=== PATIENT | female | born 1990 | race Caucasian/White ===

== ENCOUNTER 2017-08-30 08:40 | Inpatient (IN) | payer SELFPAY ==
[2017-08-30 09:17] VITALS: BMI 25.2
[2017-08-30] MEDS: Lactated Ringers 1,000 ML 50 ML IV (09:30)
[2017-08-30 09:43] LABS: Hemoglobin 12.3 g/dl (12.0-15.0); Mean Corp Hgb Conc 34.2 g/gl (32-36); Mean Corpuscular Hgb 31.8 pg (27.0-32.0); Mean Platelet Vol. 10.8 fl (6.2-12.0); Platelet Count 187 K/mm3 (150-450); RBC Distribution Width CV 12.8 % (11.6-14.6); RBC Distribution Width SD 42.4 fl (35.1-43.9); Red Blood Count 3.87 M/mm3 (4.2-5.4); White Blood Count 11.1 K/mm3 (4.4-11.0)
[2017-08-30 09:44] LABS: Scan Indicated on CBC? Y/N NO
[2017-08-30] MEDS: Oxytocin 30 units/NS 500 ml 30 UNITS/500 ML IV.SOLN 334 UNITS IV (12:45)
--- NOTE | 2017-08-30 12:53 | PCM.OB.VAG ---
Vaginal Delivery Maternal Presentation: Active Labor Amniotic Membrane Rupture Type: Artificial - Clear Amniotic Fluid Description: Clear Final MAURA: 08/26/17 Final MAURA Source: US <20 weeks Gestational age: 40 Weeks and 4 Days Date of Procedure: 08/30/17 Pre-Operative Diagnosis: Active Labor Post-Operative Diagnosis: of Viable Boy Surgery/ Procedure Performed: Spontaneous Vaginal Delivery Type of Anesthesia: None Description of Procedure: Patient progressed well to at 1238 over intact perineum. delivered OA and restituted to DARI without difficulty where anterior shoulder delivered followed by posterior shoulder and body. with spontaneous cry and respirations. placed on maternal abdomen where mouth and nose was bulb suctioned and infant was dried and stimulated. Apgers 9 and 9. Weight pending. Umbilical cord clamped and cut once it stopped pulsing. Placenta then delivered spontaneously via Dos Santos mechanism. Placenta intact with 3VC. Placental triage WNL. EBL = 200 cc. FF midline to massage 3FB below umbilicus. Pitocin IV given per protocol for active management of the 3rd stage and to achieve hemostasis. Upon inspection of vaginal vault no lacerations noted, no repair indicated. Sponge count correct. Vaginal sweep negative. Baby to breast, skin to skin and bonding initiated. Sally Cha CNTony Presentation: Vertex Placental Delivery Description: Spontaneous Placenta Disposition: [facility] Cord Vessel Description: 3 Vessels Nuchal Cord Compression: With compression Cord Entanglement: Around neck x 1, loose Estimated Blood Loss: 200 A gender: Male (1 minute): 9 (5 minute): 9 Episiotomy Description: None Laceration: None Medications given after delivery: IV Pitocin Complications: None
--- NOTE | 2017-08-30 13:10 | PCM.HP.OB ---
- Problem List (1) Hypothyroid Status: Chronic (2) Spontaneous onset of labor Status: Acute History Date of Admission: 08/30/17 Final MAURA: 08/26/17 Final MAURA Source: US <20 weeks Gestational age: 40 Weeks and 4 Days History of this : Patient presented to triage with contractions, found to be 3-4cm and progressed uneventfully to 9cm by time this provider arrived on unit. This provider stood in for Dr. Silvestre as she in OR with other patient. Pertinent Past Medical History: Hypothyroidism - takes Levothyroxine 50mg PO daily Allergies Sulfa (Sulfonamide Antibiotics) Allergy (Verified 03/09/15 22:51) Unknown Pt states she had a reaction as a child and unsure of reaction Current Medications Acetaminophen (Tylenol) 325 - 650 mg PO Q4H PRN PRN PRN Reason: PAIN OR FEVER >100.4F Acetaminophen (Tylenol) 1,000 mg PO Q8H PRN PRN PRN Reason: MILD PAIN (1-3/10)/Temp>99.6F Al Hydroxide/Mg Hydroxide (Mylanta Ii) 15 - 30 ml PO Q4H PRN PRN PRN Reason: INDIGESTION Bisacodyl (Dulcolax) 10 mg RECTAL UD PRN PRN Reason: If no BM Citric Acid/Sodium Citrate (Bicitra) 30 ml PO UD PRN Dibucaine (Dibucaine) 1 applic TOPICAL TID PRN PRN; Protocol PRN Reason: Discomfort Hydrocortisone (Hytone) 1 applic TOPICAL TID PRN PRN; Protocol PRN Reason: Discomfort Lactated Ringer's () 1,000 mls @ 50 mls/hr IV .Q20H [facility] Last Admin: 08/30/17 09:30 Dose: 50 mls/hr Penicillin G Potassium/Dextrose (Penicillin G Potassium) 3 mu in 50 mls @ 100 mls/hr IV Q4H [facility] Oxytocin/Sodium Chloride () 30 units in 500 mls @ 1 mls/hr IV .Q500H [facility] Lactated Ringer's () 1,000 mls @ 0 mls/hr IV .Q0M [facility]COE PRN Reason: KVO Oxytocin/Sodium Chloride () 30 units in 500 mls @ 334 mls/hr IV .Q1H30M [facility] Stop: 08/30/17 13:35 Oxytocin/Sodium Chloride () 30 units in 500 mls @ 167 mls/hr IV .Q3H [facility] Stop: 08/30/17 14:05 Ibuprofen (Motrin) 600 mg PO Q6H PRN PRN PRN Reason: MILD PAIN (1-10) Levothyroxine Sodium (Synthroid) 50 mcg PO DAILY@0600 [facility] Methylergonovine Maleate (Methergine) 0.2 mg IM X1 PRN PRN Reason: Excess bleeding/uterine atony Nalbuphine HCl (Nubain) 5 - 10 mg IV Q3H PRN PRN PRN Reason: PAIN (4-10) Ondansetron HCl (Zofran) 4 mg IV Q8H PRN PRN PRN Reason: NAUSEA Ondansetron HCl (Zofran) 4 mg IV Q4H PRN PRN PRN Reason: Nausea Multivit/Folic Acid/Iron (Prenatabs Fa) 1 tablet PO DAILY@1200 [facility] Promethazine HCl (Phenergan (Ll)) 6.25 - 12.5 mg IV Q4H PRN PRN; Protocol PRN Reason: IF NAUSEA PERSISTS Senna/Docusate Sodium (Senokot-S, Christine-Colace) 1 - 2 tablet PO DAILY PRN PRN PRN Reason: Constipation Simethicone (Mylicon) 80 mg PO PCHS PRN PRN Reason: Indigestion/Stomach pain Sodium Chloride () 5 - 15 ml IV UD [facility] Last Admin: 08/30/17 09:51 Dose: Not Given Sodium Chloride () 5 - 15 ml IV UD PRN PRN Reason: SALINE FLUSH Smoking Status: Never smoker Alcohol: None Drug Use: none Number of Fetus(es): 1 Review of Systems Constitutional: Denies: Chills, Fever, Weight Change HEENT: Denies: Head Aches, Sinus Congestion, Sinus Drainage Cardiovascular: Denies: Chest Pain, Palpitations Respiratory: Denies: Cough, Shortness of breath at rest, Sputum production Gastrointestinal: Denies: Abdominal Pain, Nausea, Vomiting Genitourinary: Denies: Dysuria Musculoskeletal: Denies: Joint Pain, Joint Tenderness Skin: Denies: Rash, Wounds Neurological: Denies: Numbness, Tingling, Focal weakness Psychiatric: Denies: Anxiety, Depression, Homicidal Ideations, Suicidal Ideations Hematologic/ Lymphatic: Denies: Easy Bruising, Easy Bleeding Physical Exam Vitals: See Nursing Note for Vital Signs - reassuring FHTs noted General: Alert, Oriented x3, No apparent distress Cardiovascular: Regular rate, Regular Rhythm Lungs: Clear to auscultation Abdomen: Bowel Sounds Present, Gravid Extremities:: No edema Estimated gestational size: Appropriate for gestational size Presentation: Cephalic Cervix Dilation (cm): 9 Station: 0 Effacement (%): 100 Assessment/Plan Active and Suspected Problems Spontaneous onset of labor (Acute) A: 27 y/o , now 3. Spontaneous Labor at term - vaginal delivery P: 1) Vaginal delivery without complication - see delivery note 2) PP orders as scheduled Sally Cha CNM
[2017-08-30] MEDS: Oxytocin 30 units/NS 500 ml 30 UNITS/500 ML IV.SOLN 167 UNITS IV (13:15)
--- NOTE | 2017-08-30 13:15 | HP.PCM_ITS ---
- Problem List (1) Hypothyroid Status: Chronic (2) Spontaneous onset of labor Status: Acute History Date of Admission: 08/30/17 Final MAURA: 08/26/17 Final MAURA Source: US <20 weeks Gestational age: 40 Weeks and 4 Days History of this : Patient presented to triage with contractions, found to be 3-4cm and progressed uneventfully to 9cm by time this provider arrived on unit. This provider stood in for Dr. Silvestre as she in OR with other patient. Pertinent Past Medical History: Hypothyroidism - takes Levothyroxine 50mg PO daily Allergies Sulfa (Sulfonamide Antibiotics) Allergy (Verified 03/09/15 22:51) Unknown Pt states she had a reaction as a child and unsure of reaction Current Medications Acetaminophen (Tylenol) 325 - 650 mg PO Q4H PRN PRN PRN Reason: PAIN OR FEVER >100.4F Acetaminophen (Tylenol) 1,000 mg PO Q8H PRN PRN PRN Reason: MILD PAIN (1-3/10)/Temp>99.6F Al Hydroxide/Mg Hydroxide (Mylanta Ii) 15 - 30 ml PO Q4H PRN PRN PRN Reason: INDIGESTION Bisacodyl (Dulcolax) 10 mg RECTAL UD PRN PRN Reason: If no BM Citric Acid/Sodium Citrate (Bicitra) 30 ml PO UD PRN Dibucaine (Dibucaine) 1 applic TOPICAL TID PRN PRN; Protocol PRN Reason: Discomfort Hydrocortisone (Hytone) 1 applic TOPICAL TID PRN PRN; Protocol PRN Reason: Discomfort Lactated Ringer's () 1,000 mls @ 50 mls/hr IV .Q20H [facility] Last Admin: 08/30/17 09:30 Dose: 50 mls/hr Penicillin G Potassium/Dextrose (Penicillin G Potassium) 3 mu in 50 mls @ 100 mls/hr IV Q4H [facility] Oxytocin/Sodium Chloride () 30 units in 500 mls @ 1 mls/hr IV .Q500H [facility] Lactated Ringer's () 1,000 mls @ 0 mls/hr IV .Q0M [facility] PRN Reason: KVO Oxytocin/Sodium Chloride () 30 units in 500 mls @ 334 mls/hr IV .Q1H30M [facility] Stop: 08/30/17 13:35 Oxytocin/Sodium Chloride () 30 units in 500 mls @ 167 mls/hr IV .Q3H [facility] Stop: 08/30/17 14:05 Ibuprofen (Motrin) 600 mg PO Q6H PRN PRN PRN Reason: MILD PAIN (1-10) Levothyroxine Sodium (Synthroid) 50 mcg PO DAILY@0600 [facility] Methylergonovine Maleate (Methergine) 0.2 mg IM X1 PRN PRN Reason: Excess bleeding/uterine atony Nalbuphine HCl (Nubain) 5 - 10 mg IV Q3H PRN PRN PRN Reason: PAIN (4-10) Ondansetron HCl (Zofran) 4 mg IV Q8H PRN PRN PRN Reason: NAUSEA Ondansetron HCl (Zofran) 4 mg IV Q4H PRN PRN PRN Reason: Nausea Multivit/Folic Acid/Iron (Prenatabs Fa) 1 tablet PO DAILY@1200 [facility] Promethazine HCl (Phenergan (Ll)) 6.25 - 12.5 mg IV Q4H PRN PRN; Protocol PRN Reason: IF NAUSEA PERSISTS Senna/Docusate Sodium (Senokot-S, Christine-Colace) 1 - 2 tablet PO DAILY PRN PRN PRN Reason: Constipation Simethicone (Mylicon) 80 mg PO PCHS PRN PRN Reason: Indigestion/Stomach pain Sodium Chloride () 5 - 15 ml IV UD [facility] Last Admin: 08/30/17 09:51 Dose: Not Given Sodium Chloride () 5 - 15 ml IV UD PRN PRN Reason: SALINE FLUSH Smoking Status: Never smoker Alcohol: None Drug Use: none Number of Fetus(es): 1 Review of Systems Constitutional: Denies: Chills, Fever, Weight Change HEENT: Denies: Head Aches, Sinus Congestion, Sinus Drainage Cardiovascular: Denies: Chest Pain, Palpitations Respiratory: Denies: Cough, Shortness of breath at rest, Sputum production Gastrointestinal: Denies: Abdominal Pain, Nausea, Vomiting Genitourinary: Denies: Dysuria Musculoskeletal: Denies: Joint Pain, Joint Tenderness Skin: Denies: Rash, Wounds Neurological: Denies: Numbness, Tingling, Focal weakness Psychiatric: Denies: Anxiety, Depression, Homicidal Ideations, Suicidal Ideations Hematologic/ Lymphatic: Denies: Easy Bruising, Easy Bleeding Physical Exam Vitals: See Nursing Note for Vital Signs - reassuring FHTs noted General: Alert, Oriented x3, No apparent distress Cardiovascular: Regular rate, Regular Rhythm Lungs: Clear to auscultation Abdomen: Bowel Sounds Present, Gravid Extremities:: No edema Estimated gestational size: Appropriate for gestational size Presentation: Cephalic Cervix Dilation (cm): 9 Station: 0 Effacement (%): 100 Assessment/Plan Active and Suspected Problems Spontaneous onset of labor (Acute) A: 27 y/o , now 3. Spontaneous Labor at term - vaginal delivery P: 1) Vaginal delivery without complication - see delivery note 2) PP orders as scheduled Sally Cha CNM
[2017-08-30] MEDS: 0.9% Saline Lock 10 ML Syringe IV (14:21)
[2017-08-30 16:22] VITALS: BP 104/61; PULSE 91; RESP 16; TEMP 37.1
[2017-08-30] MEDS: Naproxen 250 MG Tablet PO ×2 (16:38→23:42)
[2017-08-30 19:40] VITALS: BP 140/81; PULSE 74; RESP 18; TEMP 36.9; O2SAT 99
[2017-08-30] MEDS: Acetaminophen 500 MG Tablet 1000 MG PO (19:41)
[2017-08-30 23:31] VITALS: BP 113/55; PULSE 80; RESP 16; TEMP 37.1
[2017-08-31 05:00] VITALS: BP 107/70; PULSE 78; RESP 16; TEMP 36.7
[2017-08-31] MEDS: Levothyroxine 50 MCG Tablet PO (05:43)
[2017-08-31] MEDS: Acetaminophen 500 MG Tablet 1000 MG PO (05:43)
[2017-08-31 07:45] VITALS: BP 107/59; PULSE 90; RESP 16; TEMP 37.2; O2SAT 97
[2017-08-31] MEDS: Senna/Docusate Sodium 1 Tablet PO (07:46)
--- NOTE | 2017-08-31 08:57 | PCM.PROGNOTE ---
Patient Problems: Active and Suspected Problems Spontaneous onset of labor (Acute) Subjective: Doing well per patient and nursing staff. Taking PO and ambulating without difficulty. Voiding without complaints. Pain controlled with Motrin. without difficulty. Denies any increased vaginal bleeding, clots or pain. Planning D/C home tomorrow. - Physical Exam General: Alert, Oriented x3, Cooperative Lungs: Clear to auscultation, Normal air movement, No rhonchi, No wheeze Cardiovascular: Regular rate, Regular Rhythm, No murmurs Abdomen: Bowel Sounds Present, Soft, Non Tender, - - Fundus firm 2 below U Extremities: No edema, - - Bridget's negative Psych/Mental Status: Normal Affect, Appropriate Vital Signs Temp Pulse Resp BP Pulse Ox 98.9 F 90 16 107/59 L 97 08/31/17 07:45 08/31/17 07:45 08/31/17 07:45 08/31/17 07:45 08/31/17 07:45 Oxygen Delivery Method Room Air Weight: 151 lb 10.848 oz Body Mass Index (BMI) 25.2 Intake and Output for Last 24 Hours 08/29/17 08/30/17 08/31/17 23:59 23:59 23:59 Intake Total 450 / 450 Output Total 1800 / 1800 Balance -1350 / -1350 Laboratory Tests Past 24 Hrs 08/30/17 08/30/17 09:20 09:20 WBC 11.1 H RBC 3.87 L Hgb 12.3 Hct 36.0 L MCV 93.0 MCH 31.8 MCHC 34.2 RDW 12.8 RDW Differential 42.4 Plt Count 187 MPV 10.8 Blood Type O POSITIVE Antibody Screen NEGATIVE Assessment/Plan Active and Suspected Problems Spontaneous onset of labor (Acute) A: PPD#1 GBS positive P: 1) Routine care 2) Planning D/C home tomorrow due to GBS positive status
[2017-08-31 12:41] VITALS: BP 117/68; PULSE 72; RESP 18; TEMP 36.6; O2SAT 100
[2017-08-31] MEDS: Naproxen 250 MG Tablet PO ×2 (12:51→21:12)
[2017-08-31 16:10] VITALS: BP 116/56; PULSE 73; RESP 16; TEMP 37.3; O2SAT 96
[2017-08-31 19:57] VITALS: BP 132/74; PULSE 80; RESP 16; TEMP 36.8
[2017-09-01 02:58] VITALS: BP 112/55; PULSE 82; RESP 16; TEMP 37.1
[2017-09-01] MEDS: Levothyroxine 50 MCG Tablet PO (05:09)
[2017-09-01 08:40] VITALS: BP 107/67; PULSE 82; RESP 16; TEMP 37.1
--- NOTE | 2017-09-01 10:23 | PCM.PN.OB ---
Patient Problems: Active and Suspected Problems Spontaneous onset of labor (Acute) Subjective: 27 y/o female s/p . Patient doing well. Denies Chest pain, SOB. Denies n/v/f/c. - Physical Exam General: Alert, Oriented x3 HEENT: Atraumatic Oral: Moist Mucosa Lungs: Clear to auscultation, Normal air movement Cardiovascular: Regular rate, Regular Rhythm Abdomen: Bowel Sounds Present, Soft, Distended - mildly and appropriate Extremities: No Calf Tenderness Psych/Mental Status: Normal Affect, Appropriate, Alert and oriented to time, place, person, mood and affect Vital Signs Temp Pulse Resp BP Pulse Ox 98.8 F 82 16 107/67 96 09/01/17 08:40 09/01/17 08:40 09/01/17 08:40 09/01/17 08:40 08/31/17 16:10 Oxygen Delivery Method Room Air Weight: 68.8 kg Body Mass Index (BMI) 25.2 Intake and Output for Last 24 Hours 08/30/17 08/31/17 09/01/17 23:59 23:59 23:59 Intake Total 450 / 450 Output Total 1800 / 1800 Balance -1350 / -1350 Medical Necessity - Tobacco Use Smoking Status: Never smoker Tobacco Use: Non-smoker Assessment/Plan Active and Suspected Problems Spontaneous onset of labor (Acute) A: 27 y/o female s/p . P: Patient seen and examined Discharge patient home today Instructed to take NSAIDs prn for pain To call if fevers >100.5 or increase in pain out of proportion. RTC: 6 weeks .
--- NOTE | 2017-09-01 10:45 | PN.OBGYN_ITS ---
Patient Problems: Active and Suspected Problems Spontaneous onset of labor (Acute) Subjective: 27 y/o female s/p . Patient doing well. Denies Chest pain, SOB. Denies n /v/f/c. - Physical Exam General: Alert, Oriented x3 HEENT: Atraumatic Oral: Moist Mucosa Lungs: Clear to auscultation, Normal air movement Cardiovascular: Regular rate, Regular Rhythm Abdomen: Bowel Sounds Present, Soft, Distended - mildly and appropriate Extremities: No Calf Tenderness Psych/Mental Status: Normal Affect, Appropriate, Alert and oriented to time, place, person, mood and affect Vital Signs Temp Pulse Resp BP Pulse Ox 98.8 F 82 16 107/67 96 09/01/17 08:40 09/01/17 08:40 09/01/17 08:40 09/01/17 08:40 08/31/17 16:10 Oxygen Delivery Method Room Air Weight: 68.8 kg Body Mass Index (BMI) 25.2 Intake and Output for Last 24 Hours 08/30/17 08/31/17 09/01/17 23:59 23:59 23:59 Intake Total 450 / 450 Output Total 1800 / 1800 Balance -1350 / -1350 Medical Necessity - Tobacco Use Smoking Status: Never smoker Tobacco Use: Non-smoker Assessment/Plan Active and Suspected Problems Spontaneous onset of labor (Acute) A: 27 y/o female s/p . P: Patient seen and examined Discharge patient home today Instructed to take NSAIDs prn for pain To call if fevers >100.5 or increase in pain out of proportion. RTC: 6 weeks .
--- NOTE | 2017-09-01 10:47 | DCINST_ITS ---
Discharge Diet: No Restrictions Discharge Activity: Return to Normal Activity, May not drive while taking narcotic pain medications., May Shower May resume sexual activity in: 4-6 weeks Additional Activity Instructions:: Nothing in the vagina for 4-6 weeks. You may return to work/school in 6 weeks. Call your doctor if your incision/area has: Continuous Slow Oozing, Sudden Increased Bleeding, Increased Pain/ Swelling, Increased Redness, Foul Smelling Discharge Additional Instructions: If you experience any of the following, contact your healthcare provider. * Bleeding that soaks a pad every hour for 2 hours * Fever 100.4 or higher * Unrelieved incision or abdominal pain * Swelling, redness, discharge or bleeding from your incision or episiotomy site * Your incision begins to separate * Problems urinating (including inability to urinate or burning while urinating) . * Visual changes * Severe headache * Flu-like symptoms * Pain or redness in one of both of your breasts * Pain, warmth, tenderness or swelling in your legs, especially the calf area * Frequent nausea and vomiting * Symptoms of depression or anxiety If you experience any of the following, call 911 or go to the nearest Emergency Room. * Chest pain * Problems breathing * Seizure activity * Partial or complete paralysis of a body part, slurred speech, weakness or drooping of the face, or a sudden inability to walk or hold your balance Allergies/Adverse Reactions: Allergies Sulfa (Sulfonamide Antibiotics) Allergy (Verified 03/09/15 22:51) Unknown Pt states she had a reaction as a child and unsure of reaction Medications to take at Discharge Levothyroxine [Synthroid] 50 mcg PO DAILY 03/09/15 Vits [Prenatabs FA ] 1 tablet PO DAILY 03/09/15 Please Follow Up With: Sasha Silvestre MD - [phone] When: Call to make an appointment with your doctor in 6 weeks. If you had elevated Blood Pressure or 4th degree laceration you will need to be seen in 2 weeks. Primary Care Physician: Reynaldo Dumont [Primary Care Provider] -
== END 2017-09-01 11:10 | disposition home or self-care (01) | DRG 774 ==
PROVIDERS: Admitting Provider Obstetrics & Gynecology; Family Provider Family Medicine; PCP Family Medicine; Visit Provider Obstetrics & Gynecology
DX: O69.1XX0 Labor and delivery complicated by cord around neck, with compression, not applicable or unspecified (principal); O98.82 Other maternal infectious and parasitic diseases complicating childbirth; O48.0 Post-term pregnancy; Z3A.40 40 weeks gestation of pregnancy; B95.1 Streptococcus, group B, as the cause of diseases classified elsewhere; Z37.0 Single live birth; O99.284 Endocrine, nutritional and metabolic diseases complicating childbirth; E03.9 Hypothyroidism, unspecified; Z79.899 Other long term (current) drug therapy
CPT/HCPCS: 59025; 59050; 85027; 86850; 86900; 99218; J7120; A4216; G0378

== ENCOUNTER → 2019-08-19 | Outpatient (CLI) | payer SELFPAY ==
--- NOTE | 2019-08-19 15:19 | CT_ITS ---
STUDY: CTA CHEST REASON FOR EXAM: Female, 29 years old. Chest discomfort, recent travel. ? Pulmonary emboli. RADIATION DOSAGE (If Supplied By Facility): CTDIvol = ( 3.61 ) mGy, DLP = ( 151.62 ) mGycm TECHNIQUE: The examination was performed with the intravenous administration of 75mL Isovue 370. Post-processing of the angiographic images was performed, with multiplanar reformation and 3D reconstruction. Individualized dose optimization techniques were used for this CT. COMPARISON: None. FINDINGS: Normal enhancement of the main pulmonary artery and right and left pulmonary arteries. Normal enhancement of the bilateral peripheral pulmonary arteries. There is no demonstrated pulmonary embolism. Normal thoracic aorta and visualized great vessels. There is no demonstrated aortic dissection. Normal heart and pericardium. Normal mediastinum. Normal hilar regions. Normal visualized trachea and bronchi. The lungs are well expanded. Normal pulmonary parenchyma. Normal pleura. Normal chest wall structures. Normal osseous structures. Normal visualized upper abdomen. CT/CTA Chest W/WO Contrast IMPRESSION: Normal CTA chest examination, without a demonstrated pulmonary embolism or arterial dissection. Electronically Signed: Bereket Melgar, at 15:48 EST , Service support ,
[2019-08-19 15:27] LABS: D-Dimer Quantitative (DVT/PE) 0.29 FEU/ug/m (0.27-0.49)
[2019-08-19 15:54] LABS: T4 Total, Thyroxin 9.8 ug/dL (4.8-13.9); Thyroid Stim Hormone (TSH) 1.78 uIU/mL (0.358-3.74)
== END | disposition home or self-care (01) ==
LOC: CT 14:56
PROVIDERS: PCP Family Medicine; Referring Provider Family Medicine; Visit Provider Family Medicine
DX: E03.9 Hypothyroidism, unspecified (principal); R07.89 Other chest pain
CPT/HCPCS: 36415; 71275; 84436; 84443; 85379; Q9967

== ENCOUNTER → 2019-12-10 | Outpatient (CLI) | payer SELFPAY ==
--- NOTE | 2019-12-10 11:24 | RAD_ITS ---
STUDY: X-RAY - LEFT ANKLE REASON FOR EXAM: Female, 29 years old. Left ankle pain/some swelling, injured on a trampoline last night TECHNIQUE: 3 view(s) of the ankle. COMPARISON: None. FINDINGS: Normal visualized distal tibia and fibula. Normal medial and lateral malleoli. Normal tibiotalar articulation and ankle mortise. Normal visualized talus and calcaneus. The visualized subtalar, talonavicular, calcaneocuboid and tarsal articulations are normal. The soft tissue structures are unremarkable. RAD/Ankle min 3 Views IMPRESSION: Normal x-ray examination of the ankle. Electronically Signed: Quincy Louise MD at 12:00 EDT , Service support ,
== END | disposition home or self-care (01) ==
PROVIDERS: PCP Family Medicine; Referring Provider Family Medicine; Visit Provider Family Medicine
DX: S93.402A Sprain of unspecified ligament of left ankle, initial encounter (principal)
CPT/HCPCS: 73610

== ENCOUNTER 2022-02-05 06:05 | Inpatient (IN) | payer SELFPAY ==
[2022-02-05] VITALS (48 sets, daily range): BP systolic 96–140; BP diastolic 51–95; PULSE 63–134; RESP 16–18; TEMP 36.2–37.1; O2SAT 89–100; BMI 28.4
--- NOTE | 2022-02-05 | PLAC_PTH ---
PATIENT: RL VERA LOC: WP U#:[id number] AGE/SX: 31/F ROOM: [facility] RE02/05/[address]: Sana Moulton CNM : 1990 BED: 1 DIS: 02/06/2022 SPEC #: [id number] RECD: 02/05/22 15:56 STATUS: POPEYE REVladimir #: [id number] MORENO: 02/05/22 00:[address]: Sana Moulton DEPT: SURGICAL PATHOLOGY RECD BY: Marcio Javier ENTERED: 02/06/22 12:27 SP TYPE: PLACENTA OTHR DR: Dr. Reynaldo Dumont MD Tissues: Placenta, NOS Procedures: Surgery Specimen Level V HEADER OPERATION: Vaginal delivery PRE-OP DIAGNOSIS: Marginal insertion TISSUE SUBMITTED: Placenta MICROSCOPIC DIAGNOSIS Becker placenta (481 gm): Umbilical cord ? trivascular with no evidence of inflammation. Placental membranes ? Mild acute amnionitis. Placental disc ? Shawanda-Ortega change, intravillous congestion and mild decidual chronic inflammation. AM:kermit 02/08/2022 AM:kermit 02/09/2022 MICROSCOPIC DESCRIPTION Slides are reviewed. GROSS DESCRIPTION SPECIMEN: PLACENTA / CLINICAL INFORMATION: A. Weight: 3.53 kg B. Gestational Age: 39 weeks C. Sex: Male PLACENTAL WEIGHT (POST FIXATION): 481 gm PLACENTAL DIMENSIONS: 16.5 x 14.5 x 3 cm PLACENTAL SHAPE: Usual ovoid PLACENTAL WEIGHT FOR GESTATIONAL AGE: Within 10-99th percentile MEMBRANES - Present A. Insertion: Marginal B. Site of rupture from edge: At edge of placental disc C. Color of membrane: Cruz-west D. Abnormalities: None UMBILICAL CORD - Present A. Color: Cruz-west B. Insertion: Marginal C. Length: 44 cm D. Diameter: 1 cm E. Number of vessels: Three F. Abnormalities: None PLACENTAL DISC - Present A. Color of surface: Cruz-west B. surface abnormalities: None C. Maternal cotyledons: Intact with minimal tears D. Attached retro placental clot: No clot E. Cut surface: Dark red and spongy F. Lesions: None G. Separate clot: Absent SECTIONS SUBMITTED: 1. Umbilical cord ( end notched) 2. Umbilical cord, placental end 3. Membrane roll 4. Placental disc, and maternal surfaces 5. Placental disc, and maternal surfaces 6. Placental disc, and maternal surfaces 7. Additional membranes AM:kermit 02/07/2022 TC:3 CPT: 55334
--- NOTE | 2022-02-05 | PLAC_PTH ---
PATIENT: RL VERA LOC: [facility] U#:[id number] AGE/SX: 31/F ROOM: [facility] RE02/05/[address]: Sana Moulton CNM : 1990 BED: 1 DIS: 02/06/2022 SPEC #: [id number] RECD: 02/05/22 15:56 STATUS: POPEYE REVladimir #: [id number] MORENO: 02/05/22 00:[address]: Sana Moulton DEPT: SURGICAL PATHOLOGY RECD BY: Marcio Javier ENTERED: 02/06/22 12:27 SP TYPE: PLACENTA OTHR DR: Dr. Reynaldo Dumont MD Tissues: Placenta, NOS Procedures: Surgery Specimen Level V HEADER OPERATION: Vaginal delivery PRE-OP DIAGNOSIS: Marginal insertion TISSUE SUBMITTED: Placenta MICROSCOPIC DIAGNOSIS Becker placenta (481 gm): Umbilical cord ? trivascular with no evidence of inflammation. Placental membranes - No pathologic change. Placental disc ? Shawanda-Ortega change, intravillous congestion and mild decidual chronic inflammation. AM:kermit 02/08/2022 MICROSCOPIC DESCRIPTION Slides are reviewed. GROSS DESCRIPTION SPECIMEN: PLACENTA / CLINICAL INFORMATION: A. Weight: 3.53 kg B. Gestational Age: 39 weeks C. Sex: Male PLACENTAL WEIGHT (POST FIXATION): 481 gm PLACENTAL DIMENSIONS: 16.5 x 14.5 x 3 cm PLACENTAL SHAPE: Usual ovoid PLACENTAL WEIGHT FOR GESTATIONAL AGE: Within 10-99th percentile MEMBRANES - Present A. Insertion: Marginal B. Site of rupture from edge: At edge of placental disc C. Color of membrane: Cruz-west D. Abnormalities: None UMBILICAL CORD - Present A. Color: Cruz-west B. Insertion: Marginal C. Length: 44 cm D. Diameter: 1 cm E. Number of vessels: Three F. Abnormalities: None PLACENTAL DISC - Present A. Color of surface: Cruz-west B. surface abnormalities: None C. Maternal cotyledons: Intact with minimal tears D. Attached retro placental clot: No clot E. Cut surface: Dark red and spongy F. Lesions: None G. Separate clot: Absent SECTIONS SUBMITTED: 1. Umbilical cord ( end notched) 2. Umbilical cord, placental end 3. Membrane roll 4. Placental disc, and maternal surfaces 5. Placental disc, and maternal surfaces 6. Placental disc, and maternal surfaces 7. Additional membranes AM:kermit 02/07/2022 TC:3 CPT: 80745
[2022-02-05] MEDS: Lactated Ringers 1,000 ML 200 ML IV (06:27)
[2022-02-05 06:43] LABS: Absolute Lymphocyte Count 1.52 X10^3/uL (0.83-4.51); Basophil# 0.03 X10^3/uL; Basophil% 0.2 % (0-1); Eosinophil# 0.06 X10^3/uL; Eosinophils% 0.5 % (0-5); Hematocrit 38.2 % (37-47); Hemoglobin 13.4 g/dL (12.0-15.0); Lymphocyte # 1.52 X10^3/ul (0.83-4.51); Lymphocyte % 12.3 % (19-41); Mean Corp Hgb Conc 35.1 g/dL (32-36); Mean Corpuscular Hgb 32.8 pg (27.0-32.0); Mean Corpuscular Volume 93.4 fL (81-99); Mean Platelet Vol. 10.5 fl (6.2-12.0); Monocyte# 0.71 X10^3/uL; Monocyte% 5.7 % (0-10); NRBC Flagged by Analyzer 0 % (0-5); Neutrophil # 9.99 X10^3/uL (2.7-7.7); Neutrophil % 80.7 % (47-70); Platelet Count 187 K/mm3 (150-450); RBC Distribution Width CV 12.4 % (11.6-14.6); RBC Distribution Width SD 42.6 fl (35.1-43.9); Red Blood Count 4.09 M/mm3 (4.2-5.4); White Blood Count 12.4 K/mm3 (4.4-11.0)
[2022-02-05] MEDS: LACTATED RINGERS 500 ML 999 ML IV (06:46)
[2022-02-05] MEDS: fentaNYL-bupivacaine (epidural) 100 ML BAG EPIDURAL (08:09)
--- NOTE | 2022-02-05 09:48 | HP.PCM.OB_ITS ---
HPI - General General Date of Admission: 02/05/22 HPI Narrative RL VERA, is a 31 F who presents at 39w4d in active labor. complicated by history of hypothyroidism, unmedicated during the . Maternal Data Information MAURA Calculator Estimated Delivery Date Method Current WG Current Estimate 02/08/22 Manual 39w 4d Final MAURA: 02/08/22 PFSH PFSH Home Medications vits,calcium no.78-iron fumarate-folic acid 29 mg-1 mg tablet (Prenatabs FA) 1 tab PO DAILY 03/09/15 [History Last Taken 02/04/22] Allergy/AdvReac Type Severity Reaction Status Date / Time Sulfa (Sulfonamide Allergy Unknown Verified 02/05/22 01:28 Antibiotics) Surgical History (Updated 02/05/22 @ 09:02 by Beulah Grissom) History of hand surgery Social History Smoking Status: Never smoker History Elective abortions Hx Para 3 Spontaneous abortions Hx # Term Pregnancies Ectopic pregnancies Hx # Pregnancies Multiple births # of living children Visit Details OB Flowsheet Initial Weight: Not Recorded Date -?-?-?-?-?-?-?-?-?-?-?-?- EGA Weight BP Urine Prot -?-?-?-?-?-?-?-?-?-?-?-?- Glucose FHR FuHt Pres Dilation -?-?-?-?-?-?-?-?-?-?-?-?- Effaced St Visit Note 02/05/22 -?-?-?-?-?-?-?-?-?-?-?-?- 39w 4d 170 lb 12.8 oz 120/7 7 118/70 116/61 137/93 138/91 138/93 136/86 118/78 124/75 113/76 119/73 132/82 134/95 99/55 -?-?-?-?-?-?-?-?-?-?-?-?- -?-?-?-?-?-?-?-?-?-?-?-?- NST FHR Rate Baby A Baseline: 145 Variability:: Moderate Accelerations:: 15 x 15 Decelerations:: None FHR Category:: Category I Uterine Activity:: every 4-5 minutes, strong ROS Constitutional Constitutional: Reports systems reviewed and no addt'l complaints, except as documented; Denies headache(s) Eyes Eyes: Denies acute decrease in peripheral vision, blurry vision or change in vision ENT HEENT: Reports systems reviewed and no addt'l complaints, except as documented Cardiovascular Cardiovascular: Denies chest pain or dizziness Respiratory/Chest Respiratory/Chest: Denies cough, dyspnea, dyspnea on exertion, shortness of breath at rest or shortness of breath with exertion Gastrointestinal Gastrointestinal: Denies abdominal pain, diarrhea, nausea or vomiting Genitourinary Genitourinary: Denies abdominal discomfort Musculoskeletal Musculoskeletal: Denies limited range of motion Integumentary Integumentary: Reports systems reviewed and no addt'l complaints, except as documented Neurologic Neurologic: Reports systems reviewed and no addt'l complaints, except as documented Psychiatric Psychiatric: Reports systems reviewed and no addt'l complaints, except as documented Endocrine Endocrinology: Reports systems reviewed and no addt'l complaints, except as documented Hematologic/Lymphatic Hematologic/Lymphatic: Reports systems reviewed and no addt'l complaints, except as documented Allergic/Immunologic Allergic/Immunologic: Reports systems reviewed and no addt'l complaints, except as documented Vital Signs Vital Signs Vital Signs: 02/05/22 01:09 02/05/22 01:09 02/05/22 01:14 Temperature Temperature Source Pulse Rate 96 99 Blood Pressure BP Systolic BP Diastolic Pulse Ox 99 02/05/22 01:14 02/05/22 01:16 02/05/22 01:16 Temperature Temperature Source Pulse Rate 81 Blood Pressure 120/77 BP Systolic 120 BP Diastolic 77 Pulse Ox 98 02/05/22 05:59 02/05/22 05:59 02/05/22 05:59 Temperature Temperature Source Pulse Rate 78 90 Blood Pressure 118/70 BP Systolic 118 BP Diastolic 70 Pulse Ox 02/05/22 05:59 02/05/22 07:13 02/05/22 07:13 Temperature Temperature Source Pulse Rate 88 Blood Pressure 116/61 BP Systolic 116 BP Diastolic 61 Pulse Ox 99 02/05/22 07:13 02/05/22 07:13 02/05/22 07:13 Temperature 98.7 F Temperature Source Temporal Pulse Rate Blood Pressure BP Systolic BP Diastolic Pulse Ox 97 02/05/22 07:50 02/05/22 07:50 02/05/22 07:55 Temperature Temperature Source Pulse Rate 93 Blood Pressure 137/93 H BP Systolic 137 BP Diastolic 93 Pulse Ox 98 02/05/22 07:55 02/05/22 07:55 02/05/22 07:55 Temperature Temperature Source Pulse Rate 101 H 108 H Blood Pressure BP Systolic BP Diastolic Pulse Ox 99 02/05/22 08:00 02/05/22 08:00 02/05/22 08:00 Temperature Temperature Source Pulse Rate 112 H 97 Blood Pressure 138/91 H BP Systolic 138 BP Diastolic 91 Pulse Ox 02/05/22 08:00 02/05/22 08:05 02/05/22 08:05 Temperature Temperature Source Pulse Rate 93 Blood Pressure 138/93 H BP Systolic 138 BP Diastolic 93 Pulse Ox 99 02/05/22 08:05 02/05/22 08:05 02/05/22 08:10 Temperature Temperature Source Pulse Rate 91 Blood Pressure 136/86 H BP Systolic 136 BP Diastolic 86 Pulse Ox 99 02/05/22 08:10 02/05/22 08:10 02/05/22 08:10 Temperature Temperature Source Pulse Rate 87 96 Blood Pressure BP Systolic BP Diastolic Pulse Ox 98 02/05/22 08:16 02/05/22 08:16 02/05/22 08:16 Temperature Temperature Source Pulse Rate 106 H Blood Pressure 118/78 BP Systolic 118 BP Diastolic 78 Pulse Ox 99 02/05/22 08:20 02/05/22 08:20 02/05/22 08:21 Temperature Temperature Source Pulse Rate 92 112 H Blood Pressure 124/75 H BP Systolic 124 BP Diastolic 75 Pulse Ox 02/05/22 08:21 02/05/22 08:27 02/05/22 08:27 Temperature Temperature Source Pulse Rate 112 H Blood Pressure 113/76 BP Systolic 113 BP Diastolic 76 Pulse Ox 97 02/05/22 08:26 02/05/22 08:31 02/05/22 08:31 Temperature Temperature Source Pulse Rate 99 Blood Pressure 119/73 BP Systolic 119 BP Diastolic 73 Pulse Ox 98 02/05/22 08:31 02/05/22 08:31 02/05/22 08:36 Temperature Temperature Source Pulse Rate 106 H Blood Pressure 132/82 H BP Systolic 132 BP Diastolic 82 Pulse Ox 98 02/05/22 08:36 02/05/22 08:36 02/05/22 08:36 Temperature Temperature Source Pulse Rate 109 H 113 H Blood Pressure BP Systolic BP Diastolic Pulse Ox 99 02/05/22 08:36 02/05/22 08:40 02/05/22 08:40 Temperature Temperature Source Temporal Pulse Rate 98 Blood Pressure BP Systolic BP Diastolic Pulse Ox 89 02/05/22 08:36 02/05/22 08:41 02/05/22 08:41 Temperature 98.0 F Temperature Source Pulse Rate 134 H Blood Pressure 134/95 H BP Systolic 134 BP Diastolic 95 Pulse Ox 02/05/22 08:41 02/05/22 09:18 02/05/22 09:18 Temperature Temperature Source Pulse Rate 81 Blood Pressure 99/55 L BP Systolic 99 BP Diastolic 55 Pulse Ox 100 02/05/22 09:18 02/05/22 09:18 Temperature 97.7 F L Temperature Source Temporal Pulse Rate Blood Pressure BP Systolic BP Diastolic Pulse Ox Weight Weight: 170 lb 12.8 oz Body Mass Index (BMI) 28.4 Physical Exam Const alert and oriented x3 General Appearance: cooperative Orientation / Consciousness: awake, oriented to person, oriented to place and oriented to time Exam Limitations: no limitations HEENT normocephalic Head and Scalp: normal to inspection, normocephalic and atraumatic Face and Sinus: normal facial exam Eyes General Eye: normal appearance of both eyes Neck full ROM Chest Chest: symmetrical chest wall rise Resp normal respiratory effort and normal air movement Auscultation: clear to auscultation bilaterally Cardio regular rate, regular rhythm, S1 normal heart sound, S2 normal heart sound, no murmurs, no rub, no gallops and no clicks GI normal to inspection, nondistended, normoactive bowel sounds and non-tender appearance of the vagina normal Bladder / Kidney Exam: no CVA tenderness Manual OB Exam: estimated gestational size, presentation cephalic, dilated 7.5, effaced 90 and station -1 Back/Spine normal ROM Extremity normal to inspection and full ROM Skin no rashes or lesions noted Neuro oriented x3, CN's II-XII intact bilaterally and moves all extremities Sensorium / Orientation: awake, alert and oriented to person Motor Exam: clonus absent Deep Tendon Reflexes: Rt Patellar (L4): 2+ and Lt Patellar (L4): 2+ Labs Labs Labs: Blood Type O POSITIVE Antibody Screen NEGATIVE Hct 38.2 % (37-47) Hgb 13.4 g/dL (12.0-15.0) Rhogam given: No GBS positive HIV negative RPR negative HBsAG negative HepC negative Rubella Immune GC/CT negative O positive Assessment & Plan (1) Term : (2) Hypothyroid: (3) Spontaneous onset of labor: PLAN: Plan 1) Admit to labor and delivery 2) Routine labs 3) Continuous EFM 4) Epidural for pain management 5) GBS prophylaxis per protocol 6) COVID screening 7) notified of patient and collaborative physician 8) Declines LARC immediate PP
[2022-02-05] MEDS: Penicillin G 3,000,000 Units 50 ML 100 UNITS IV (10:29)
[2022-02-05] MEDS: Oxytocin 30 units/NS 500 ml 30 UNITS/500 ML IV.SOLN 334 UNITS IV (10:52)
--- NOTE | 2022-02-05 10:59 | EX.PCM.OBRPT ---
Assessment & Plan (1) Vaginal delivery: (2) Positive GBS test: (3) Thin meconium stained amniotic fluid: Maternal Data Information MAURA Calculator Estimated Delivery Date Method Current WG Current Estimate 02/08/22 Manual 39w 4d Vaginal Delivery Maternal Presentation Maternal Presentation: Active Labor Operative Information Date of Procedure: 02/05/22 Pre-Operative Diagnosis: Active labor at term, meconium stained fluid, GBS positive Post-Operative Diagnosis: Surgery / Procedure Performed: Spontaneous Vaginal Delivery Type of Anesthesia: Epidural Estimated Blood Loss: 400ml Time of Delivery: 10:48 Findings Description of Procedure: Presented to complete dilation after AROM. Epidural for pain management. Light meconium stained fluid, public relations assistant and respiratory called for delivery. of viable male infant over intact perineum, APGARS 8,9. Infant head delivered and body immediately forthcoming. Mouth and nares suctioned for secretions, strong cry. Pitocin started for active 3rd stage management. Cord clamped and cut after pulsations ceased. placenta delivered with expression, intact, 3 vessel cord with marginal insertion. Perineum inspected and intact. Vaginal sweep completed, fundus firm, EBL 400ml. Sponge and instrument count correct. Mom and baby stable. Family bonding well. notified of delivery. Presentation: Vertex and ANABELL Amniotic Membrane Rupture Type: Artificial Amniotic Fluid Description: Lightly stained meconium Placental Delivery Description: Spontaneous Placenta Disposition: [facility] Cord Vessel Description: marginal insertion Cord Entanglement: None A Gender: Male (1 minute): 8 (5 minute): 9 Delayed Cord Clamping: Yes Post Vaginal Delivery Medications Given After Delivery: IV Pitocin Episiotomy Description: None Laceration: None Complication Complications: None
[2022-02-05] MEDS: Ibuprofen 600 MG Tablet PO (20:28)
[2022-02-05] MEDS: Senna/Docusate Sodium 1 Tablet PO (20:29)
[2022-02-06 04:53] VITALS: BP 104/66; PULSE 63; RESP 16; TEMP 36.6; O2SAT 96
[2022-02-06 05:16] LABS: Hematocrit 35.4 % (37-47); Mean Corp Hgb Conc 33.9 g/dL (32-36); Mean Corpuscular Hgb 32.3 pg (27.0-32.0); Mean Corpuscular Volume 95.2 fL (81-99); Mean Platelet Vol. 10.4 fl (6.2-12.0); Platelet Count 182 K/mm3 (150-450); RBC Distribution Width CV 12.6 % (11.6-14.6); RBC Distribution Width SD 43.8 fl (35.1-43.9); Red Blood Count 3.72 M/mm3 (4.2-5.4); White Blood Count 12.7 K/mm3 (4.4-11.0)
[2022-02-06] MEDS: Ibuprofen 600 MG Tablet PO (06:23)
--- NOTE | 2022-02-06 07:46 | PCM.PN.OB ---
Subjective Subjective Patient seen at bedside. Sitting up eating breakfast. Feeling good. Denies any pain. Ambulating and voiding without difficulty. without support. Desires discharge home today. Objective Data Objective Data Vital Signs: Vital Signs Temp Pulse Resp BP Pulse Ox O2 Del Method 97.9 F 63 16 104/66 96 Room Air 02/06/22 04:53 02/06/22 04:53 02/06/22 04:53 02/06/22 04:53 02/06/22 04:53 02/06/22 04:53 Oxygen Delivery Method Room Air Weight: 170 lb 12.8 oz Body Mass Index (BMI) 28.4 Intake & Output: Intake and Output for Last 24 Hours 02/04/22 02/05/22 02/06/22 23:59 23:59 23:59 Intake Total 2221.66 / 2221.66 Output Total 1600 / 1600 Balance 621.66 / 621.66 Lab / Micro Data Result Diagrams: 02/06/22 05:00 Labs: Laboratory Results - last 24 hr 02/05/22 06:30: Blood Type O POSITIVE, Antibody Screen NEGATIVE 02/06/22 05:00: WBC 12.7 H, RBC 3.72 L, Hgb 12.0, Hct 35.4 L, MCV 95.2, MCH 32.3 H, MCHC 33.9, RDW Std Deviation 43.8, RDW Coeff of Brenda 12.6, Plt Count 182, MPV 10.4 Micro: Microbiology 02/05/22 06:00 Nasal Secretion SARS-CoV-2 Antigen (Rapid) - Final ROS Eyes Eyes: Denies blurry vision, change in vision or spots in vision ENT HEENT: Denies dizziness or headache(s) Cardiovascular Cardiovascular: Denies abdominal pain, chest pain or dyspnea Respiratory/Chest Respiratory/Chest: Denies cough, dyspnea, shortness of breath at rest or shortness of breath with exertion Gastrointestinal Gastrointestinal: Denies abdominal pain, diarrhea or vomiting Genitourinary Genitourinary: Denies change in urinary stream, difficulty urinating or dysuria Musculoskeletal Musculoskeletal: Reports none Integumentary Integumentary: Denies rash Neurologic Neurologic: Denies dizziness, headache(s), memory loss or weakness Physical Exam Const alert and no apparent distress General Appearance: cooperative and comfortable Exam Limitations: no limitations HEENT normocephalic Eyes General Eye: normal appearance of both eyes Neck full ROM General: normal visual inspection Chest Chest: symmetrical chest wall rise Resp normal respiratory effort and normal air movement Effort and Inspection: symmetric chest movement Auscultation: clear to auscultation bilaterally Cardio regular rate and regular rhythm GI normal to inspection, nondistended, normoactive bowel sounds Back/Spine normal ROM Extremity full ROM and no calf tenderness General Extremity: normal exam except as noted Skin no rashes or lesions noted Neuro CN's II-XII intact bilaterally Psych mental status grossly normal Assessment & Plan (1) Vaginal delivery: (2) Term : (3) Care and examination of lactating mother: PLAN: Plan PPD 1 Routine care Pain control support D/C home with follow up in office
--- NOTE | 2022-02-06 07:48 | DCINST_ITS ---
Discharge Instructions Diet Discharge Diet: No restrictions Activity Discharge Activity: Return to Normal Activity and May Shower May resume sexual activity in: 4-6 weeks Weight Bearing Status: Weight bearing as tolerated Follow Up Care Please Follow Up With: Sana Moulton CNM When: 2 weeks/ virtual then 4 weeks later in office Test Results: Test results from this visit will be discussed in further detail at your follow- up appointment, if applicable. Discharge Plan Admission Admit Date/Time: 02/05/22 06:05 Primary Reason for Your Visit: Labor and Delivery Attending Provider: Sana Moulton Primary Care Provider: Reynaldo Dumont Discharge Orders/Prescriptions Prescriptions: No Action Prenatabs FA 1 TABLET tablet 1 tab PO DAILY Referrals / Follow Up: Reynaldo Dumont MD [Primary Care Provider] - Disposition Disposition (needs filled in before D/C Order can be placed): Home, Self Care
[2022-02-06 08:00] VITALS: BP 100/64; PULSE 82; RESP 16; TEMP 36.4; O2SAT 97
[2022-02-06 12:45] VITALS: BP 92/49; BP 95/44; PULSE 62; RESP 16; TEMP 36.4; O2SAT 98
[2022-02-09 09:44] LABS: Pathology Specimen OB SEE PATHOLOGY REPORT
== END 2022-02-06 14:35 | disposition home or self-care (01) | DRG 807 ==
LOC: WPOUT 06:06 → WP 06:06
PROVIDERS: Obstetrics & Gynecology; Admitting Provider Advanced Practice Midwife; PCP Family Medicine; Visit Provider Advanced Practice Midwife
DX: O99.284 Endocrine, nutritional and metabolic diseases complicating childbirth (principal); Z37.0 Single live birth; O26.23 Pregnancy care for patient with recurrent pregnancy loss, third trimester; B95.1 Streptococcus, group B, as the cause of diseases classified elsewhere; E03.9 Hypothyroidism, unspecified; O77.0 Labor and delivery complicated by meconium in amniotic fluid; O99.824 Streptococcus B carrier state complicating childbirth; Z3A.39 39 weeks gestation of pregnancy
CPT/HCPCS: 59025; 59050; 85025; 85027; 86850; 86900; 86901; 87426; 88307; 99218; J7120; G0378

== ENCOUNTER → 2025-01-03 | Outpatient (CLI) | payer SELFPAY ==
--- OUTSIDE RECORDS SUMMARY | 2025-01-03 11:38 | XMS RPT_ITS | CCD ---
Author Organization [facility] Care Team Providers Care Shellfish Manager Name Role Phone Ruby COVINGTON, Adrienne Farmer Primary Care Provid er KIM FELDER Referring Unavailable FINZACHARY, ADRIENNE FARMER Primary Care CARLOS Wong Attending Unavailable AMRIT, RAHEL Referring Unavailable FINZACHARY, DARIENNE FARMER Primary Care Unavalillian labmayelin BELTRAN, ADRIENNE FARMER Primary Care Unavai labmayelin BELTRAN, ADRIENNE FARMER Primary Care Unavalillian MOULTON, RAHEL Attending Unavailable FINZACHARY, ADRIENNE FARMER Primary Care Unalulu MOULTON, RAHEL Referring Unavailable MOULTON, RAHEL Referring Unavailable RAHEL MOULTON Attending Unavailable FINNERDG, ADRIENNE FARMER Primary Care Unavalillian MOULTON, RAHEL Attending Unavailable FINZACHARY, ADRIENNE FARMER Primary Care Susanna labmayelin BELTRAN, ADRIENNE FARMER Primary Care KIM Almonte Referring Unavailable RAHEL MOULTON Attending Unavailable FINZACHARY, ADRIENNE FARMER Primary Care TASHA Burton Attending Unavailable TASHA CR Attending Unavailable FINZACHARY, ADRIENNE FARMER Primary Care Unavai lable RUBY, ADRIENNE FARMER Primary Care Unavai lable RAHEL MOULTON Attending Unavailable FINZACHARY, ADRIENNE FARMER Primary Care Unavai labmayelin MOULTON, RAHEL Referring Unavailable FINZACHARY, ADRIENNE FARMER Primary Care KIM Almonte Attending Unavailable RUBY, ADRIENNE FARMER Primary Care Unavai labRAHEL Irvin Attending Unavailable MOULTON, RAHEL Referring Unavailable FINZACHARY, ADRIENNE FARMER Primary Care KIM Almonte Attending Unavailable RUBY, ADRIENNE FARMER Primary Care Unavai TAMMY Almonte Attending Unavail ADRIENNE Shah Primary Care QiTAMMY Ronquillo Attending Unavail KIM Olivo Attending Unavailable RAHEL MOULTON Referring Unavailable ADRIENNE BELTRAN Primary Care Banlulu BELTRAN, ADRIENNE FARMER Primary Care Susanna BELTRAN, ADRIENNE FARMER Primary Care KIM Almonte Attending Unavailable Ruby COVINGTON, Dr. Jacobs Primary Care Provider Dr. Adrienne Beltran MD Referring Provider [phone] Lei Griffith Attending Provider Lei Griffith Attending Unavailable Adrienne Beltran Referring Unavailable Adrienne Beltran Primary Care Unavailable ANTONIA KELLY Referring Unavailable ANTONIA KELLY Attending Unavailable Adrienne Beltran Primary Care Unavailable Allergies Allergy Classification Reported Allergen(s) Allergy Type Date of Onset Reaction(s) Facility (10 sources) Sulfonamides (Antibiotic); Translations: [SULFA (SULFONAMIDE ANTIBIOTICS)] Propensity to adverse reactions 0 [facility] Work Phone: (1 source) Sulfonamides (Antibiotic) Allergy to substance 5 Unknown [facility] Comment on above: Pt states she had a reaction as a child and unsure of reaction (1 source) Sulfonamides (Antibiotic) Drug allergy (disorder) 5 [facility] Repository Medications Current Medications Medication Drug Class(es) Dates Sig (Normalized) Sig (Original) predniSONE 10 mg oral tablet (1 source) Start: 11-13-2024 Prednisone 10 mg tablet Active 10 mg PO As Directed 30 November 13, 2024 12:00am November 24, 2024 12:00am Take 4 tabs once daily days 1-3 3 tabs once daily days 4-6 2 tabs once daily days 7-9 and 1 tab once daily days 10-12. Vit,Edvz48-Mhow-Tpx ic (Prenatabs Fa) 1 TABLET tablet (2 sources) Start: 03-09-2015 take 1 tablet by mouth once daily Vit,Cxmc87-Ynah-As lic (Prenatabs Fa) 1 TABLET tablet Active 1 {tbl} PO DAILY March 09, 2015 12:00am Start: 03-09-2015 take 1 tablet by mikey th once daily Vit,Tjxw59-Iqub-Resup (Prenatab s Fa) 1 TABLET tablet Active 1 TABLET PO DAILY March 09, 2015 12:00am Completed/Discontinued Medications Medication Drug Class(es) Dates Sig (Normalized) Sig (Original) amoxicillin 500 mg oral capsule (1 source) Penicillin-class Antibacterial Start: 07-05-2023 End: 07-15-2023 take 1 capsule by mouth twice daily Amoxicillin 500 mg capsule Discontinued 500 mg PO TWICE A DAY 20 July 05, 2023 1:00am July 14, 2023 1:00am July 15, 2023 1:04am vit no.124/iron/folic ( VITAMIN ORAL) (9 sources) vit no.124/iron/folic ( VITAMIN ORAL) Take by mouth. 0 Active Comment on above: Take by mouth. Problems Active Problems Problem Classification Problem Date Documented Date Episodic/Chronic Bacterial infection; unspecified site (3 sources) Bacteria present; Translations: [Streptococcus, group B, as the cause of diseases classified elsewhere] Episodic Contraceptive and procreative management (1 source) Patient encounter status; Translations: [Encounter for other general counseling and advice on contraception] Episodic Other conditions (2 sources) Amniotic fluid -meconium stain ; Translations: [Meconium staining] 02-14-2022 Episodic Other conditions (1 source) Meconium staining; Translations: [Meconium staining] Episodic Other and delivery including normal (12 sources) Normal ; Translations: [Encounter for supervision of other normal , third trimester] Onset: 08-22-2021 Episodic Other screening for suspected conditions (not mental disorders or infectious disease) (1 source) Encounter for screening for other suspected endocrine disorder; Translations: [Encounter for screening for other suspected endocrine disorder] Onset: 12-30-2024 Episodic Other upper respiratory infections (1 source) Streptococcal sore throat; Translations: [Streptococcal pharyngitis] 07-05-2023 Episodic Residual codes; unclassified (1 source) Gestation period, 28 weeks; Translations: [28 weeks gestation of ] Episodic Residual codes; unclassified (1 source) Gestation period, 30 weeks; Translations: [30 weeks gestation of ] Episodic Residual codes; unclassified (1 source) Gestation period, 32 weeks; Translations: [32 weeks gestation of ] Episodic Residual codes; unclassified (1 source) Gestation period, 35 weeks; Translations: [35 weeks gestation of ] Episodic Residual codes; unclassified (1 source) Gestation period, 36 weeks; Translations: [36 weeks gestation of ] Episodic Residual codes; unclassified (1 source) Gestation period, 37 weeks; Translations: [37 weeks gestation of ] Episodic Residual codes; unclassified (1 source) Gestation period, 38 weeks; Translations: [38 weeks gestation of ] Episodic Thyroid disorders (14 sources) Hypothyroidism; Translations: [Hypothyroidism, unspecified] Onset: 03-30-2012 09-19-2021 Chronic Past or Other Problems Problem Classification Problem Date Documented Da te Episodic/Chronic Other complications of (12 sources) High risk ; Translations: [Supervision of high risk , unspecified, second trimester] Onset: 07-25-2021 Episodic Residual codes; unclassified (1 source) 24 weeks gestation of ; Translations: [24 weeks gestation of ] Onset: 12-05-2021 Episodic Unclassified (3 sources) Spontaneous onset of labor; Translations: [Spontaneous onset of labor] Results Test Name Value Interpretation Reference Range Facil ity Urgent Care Visit Reporton 0 11-13-2024 Urgent Care Visit Report [facility] [address], [address] [place] [address] OFFICE VISIT Date of Service: 11/13/24 MR#: [id number] Acct: [id number] Name: RL VERA Rep #: [id number] : 1990 Provider: RONNY Briones Age/Sex: 34/F Location: [email or web address] Status: Signed Intake Vital Signs 07/05/23 15:49 11/13/24 09:41 Height 5 ft 5 in BP 108/58 L Blood Pressure Location Lt brachial Position Sitting Respiration 15 Pulse 67 Pulse Source NIBP Temp 98.3 F Temp Source Oral Pulse Oximetry (%) 98 Oxygen Delivery Method room air Intake Visit Reasons: CONCERN FOR POISON JOSE Chief Complaint: rash to face Tuber Helper Required: No Is patient in pain?: Yes Allergies Sulfa (Sulfonamide Antibiotics) Allergy (Verified 11/13/24 09:41) Unknown Is last menstrual period known: No Post menopausal: No Patient : No Have you fallen in the past year?: No Nurse's Note: rash to left face x 3 days with pain, itching, redness, swelling. believes to be poison jose. denies additional areas of concern. [facility] Medical History (Updated 11/13/24 @ 11:52 by Lei JEFFERSON, PA) Care and examination of lactating mother Thin meconium stained amniotic fluid Vaginal delivery Term Hypothyroid Surgical History (Updated 02/05/22 @ 09:02 by Beulah Grissom) History of hand surgery Social History Smoking Status: Never smoker HPI HPI Chief Complaint: rash to face Details: RL VERA, is a 34 F who presents to the office today for complaint of poison jose to the left side of her face. Patient states that she had exposure to poison jose 4 days ago and then the rash appeared the next day and has worsened since then. She denies lip/tongue/throat swelling. No shortness of breath or difficulty breathing. No other associated symptoms or alleviating/aggrava ting factors. ROS Const Constitutional: No other (6 system ROS completed with pertinent findings in the HPI otherwise normal.) Exam Const General: cooperative and healthy appearing HENID Head: normocephalic and atraumatic Ears: hearing grossly normal bilaterally Nose: external nose normal Face and sinus: normal facial exam and face symmetric Mouth: oral mucosae normal Throat: posterior oropharynx normal Eyes General: appearance normal, both eyes and all related structures Resp Effort Inspection: normal respiratory effort Cardio Rate: regular rate Skin Other: Grouped vesicular lesions and erythema left side of the face from the chin up to the cheeks. Neuro General: patient alert Psych Appearance: grossly normal Mental Status: mental status grossly normal Coding Level of Care Code Off vis,est,level 3 Diagnoses Irritant contact dermatitis due to plant L24.7 Assessment and Plan Assessment and Plan (1) Irritant contact dermatitis due to plant: Status: Acute Medications: New prednisone Take 4 tabs once daily days 1-3 3 tabs once daily days 4-6 2 tabs once daily days 7-9 and 1 tab once daily days 10-12. 10 mg PO DIRECTED 12 days 30 tabs 0RF L25.9 - Unspecified contact dermatitis, unspecified cause Plan Prednisone as prescribed today. Encouraged to get plenty of rest, drink lots of clear liquids, and use Benadryl for comfort. Patient also educated on other symptomatic management techniques. To be seen in 7-10 days if no improvement; sooner if worsening of symptoms. Patient advised of potential red flags and when appropriate to report to the ED. Patient verbalized understanding and agreement with all the above. Clinical Quality Measures Falls Risk Screening/Assistive Devices Have you fallen in the past year?: No 11/13/24 1237 Date Lei Christina Signature: Date (if applicable) CC: Normal [facility] T4 Free SerPl-mCncon 022 Free T4 [Mass/Vol] 1.6 ng/dL Normal 0.9-1.7 [facility] Comment on above: Order Comment: Lizandro gonzalez Type: BLOOD SPECIMEN Ordering Facility: [facility] Address: [address] [place], [place] [id number] Performed By: #### 3 024-7, 3016-3 #### [facility] CLIA [id number] [address] [place] [address] [place] TSH SerPl-aCncon 04-07-2022 TSH Qn 0.046 m[IU]/L Low 0.270-4.200 [facility] Comment on above: Order Comment: Lizandro gonzalez Type: BLOOD SPECIMEN Ordering Facility: [facility] Address: [address] [place], [place] [id number] Result Comment: If t he patient is , TSH reference range varies by gestational period: First Trimester (weeks 9-12): 0.180-2.990 mIU/L Second Trimester: 0.110-3.980 mIU/L Third Trimester: 0.480-4.710 mIU/L Serafin Slater et al. A Practical Approach for the Verifications and Determination of Site- and Trimester-Specific Reference Intervals for Thyroid Function tests in . Thyroid, 2019:29:3:412-420. Jorge Benavides, et al. 2017 Guidelines of the [place] Thyroid Association for the Diagnosis and Management of Thyroid Disease during and the . Thyroid, 2017:27:3:315-389. Performed By: #### 3 016-3 #### [facility] CLIA [id number] [address] [place] [address] [place] Basophil percentageon 2021 WBC (Bld) [#/Vol] 12.7 10*3/uL 4.4-11.0 [facility] Work Phone: Blood erythrocytes count (nu mber/volume)on 02-06-2022 RBC (Bld) [#/Vol] 3.72 10*6/uL 4.2-5.4 [facility] Work Phone: Blood hemoglobin measurement (mass/volume)on 02-06-2022 Hemoglobin (Bld) [Mass/Vol] 12.0 g/dL 12.0-15.0 [facility] Work Phone: Blood platelet mean volumeon 02-06-2022 Platelet mean volume (Bld) [Entitic vol] 10.4 fL 6.2-12.0 [facility] Work Phone: Determination of erythrocyte mean corpuscular volume (MCV)on 02-06-2022 MCV (RBC) [Entitic vol] 95.2 fL 81-99 [facility] Work Phone: Hematocrit Auto (Bld) [Volum e fraction]on 02-06-2022 Hematocrit (Bld) [Volume fraction] 35.4 % 37-47 [facility] Work Phone: Laboratory - Hematology and Cell countson 02-06-2022 Erythrocyte distribution width (RBC) [Entitic vol] 43.8 fL 35.1-43.9 [facility] Work Phone: Erythrocyte distribution width (RBC) [Ratio] 12.6 % 11.6-14.6 [facility] Work Phone: MCH (RBC) [Entitic mass] 32.3 pg 27.0-32.0 [facility] Work Phone: MCHC Auto (RBC) [Mass/Vol]on 02-06-2022 MCHC (RBC) [Mass/Vol] 33.9 g/dL 32-36 [facility] Work Phone: Platelets bldon 02-06-2022 Platelets (Bld) [#/Vol] 182 10*3/uL 150-450 [facility] Work Phone: Absolute lymphocyte counton 02-05-2022 Lymphocytes Auto (Unsp spec) [#/Vol] 1.52 10*3/uL 0.83-4.51 [facility] Work Phone: Basophil percentageon 2021 Basophils/100 WBC (Bld) 0.2 % 0-1 [facility] Work Phone: Eosinophils/100 WBC (Bld) 0.5 % 0-5 [facility] Work Phone: Neutrophils (Bld) [#/Vol] 10.0 10*3/uL 2.0-7.7 [facility] Work Phone: Neutrophils/100 WBC (Bld) 80.7 % 47-70 [facility] Work Phone: Blood lymphocytes/100 leukoc yteson 02-05-2022 Lymphocytes/100 WBC (Bld) 12.3 % 19-41 [facility] Work Phone: Blood monocytes/100 leukocyt eson 02-05-2022 Monocytes/100 WBC (Bld) 5.7 % 0-10 [facility] Work Phone: Laboratory - Hematology and Cell countson 02-05-2022 Immature granulocytes/100 WBC (Bld) 0.600 % 0.0-0.9 [facility] Work Phone: Comment on above: IG% - Immature Granu locytes (promyelocytes, myelocytes and metamyelocytes) > 1% indicates that a LEFT SHIFT is Present. Nucleated RBC/100 WBC (Bld) [Ratio] 0 % 0-5 [facility] Work Phone: URINE OB DIP B/Oon 2 Glucose Ql (U) Negative Neg mg/dL [facility] Protein.monoclonal (U) [Mass/Vol] Negative Neg mg/dL [facility] URINE OB DIP B/Oon 2 Glucose Ql (U) Negative Neg mg/dL [facility] Protein.monoclonal (U) [Mass/Vol] Negative Neg mg/dL [facility] ROUTINE, GROUP B ST REP PCRon 01-11-2022 ROUTINE, GROUP B STREP PCR GROUP B STREP PCR: Positive for Group B Streptococcus by PCR. Abnormal [facility] Comment on above: Performed By: #### 3 016-3 #### [facility] CLIA [id number] [address] [place] [address] [place] [facility] URINE OB DIP B/Oon 2 Glucose Ql (U) Negative Neg mg/dL [facility] Protein.monoclonal (U) [Mass/Vol] Negative Neg mg/dL [facility] URINE OB DIP B/Oon 2 Glucose Ql (U) Negative Neg mg/dL [facility] Protein.monoclonal (U) [Mass/Vol] Negative Neg mg/dL [facility] URINE OB DIP B/Oon 2 Glucose Ql (U) Negative Neg mg/dL [facility] Protein.monoclonal (U) [Mass/Vol] Negative Neg mg/dL [facility] CBC W Auto Differential pane l (Bld)on 12-05-2021 Basophils (Bld) [#/Vol] 0.03 10*3/uL Normal <0.11 [facility] Comment on above: Order Comment: Speci men Type: BLOOD SPECIMEN Ordering Facility: [facility] Address: [address] [place], [place] [phone] Performed By: #### 3 016-3 #### [facility] CLIA [id number] [address] [place] [address] [place] Basophils/100 WBC (Bld) 0.3 % Normal [facility] Comment on above: Order Comment: Speci men Type: BLOOD SPECIMEN Ordering Facility: [facility] Address: [address] [place], [place] [id number] Performed By: #### 3 016-3 #### [facility] CLIA [id number] [address] [place] [address] [place] Differential cell count method Nom (Bld) Auto Normal [facility] Comment on above: Order Comment: Speci men Type: BLOOD SPECIMEN Ordering Facility: [facility] Address: [address] [place], [place] [address] Performed By: #### 3 016-3 #### [facility] CLIA [id number] [address] [place] [address] [place] Eosinophils (Bld) [#/Vol] 0.16 10*3/uL Normal <0.46 [facility] Comment on above: Order Comment: Speci men Type: BLOOD SPECIMEN Ordering Facility: [facility] Address: [address] [place], [place] [address] Performed By: #### 3 016-3 #### [facility] CLIA [id number] [address] [place] [address] [place] Eosinophils/100 WBC (Bld) 1.6 % Normal [facility] Comment on above: Order Comment: Speci men Type: BLOOD SPECIMEN Ordering Facility: [facility] Address: [address] [place], [place] [address] Performed By: #### 3 016-3 #### [facility] CLIA [id number] [address] [place] [address] [place] Erythrocyte distribution width (RBC) [Ratio] 12.6 % Normal 11.5-15.0 [facility] Comment on above: Order Comment: Speci men Type: BLOOD SPECIMEN Ordering Facility: [facility] Address: [address] [place], [place] [id number] Performed By: #### 3 016-3 #### [facility] CLIA [id number] [address] [place] [address] [place] Hematocrit (Bld) [Volume fraction] 34.7 % Low 36.0-46.0 [facility] Comment on above: Order Comment: Speci men Type: BLOOD SPECIMEN Ordering Facility: [facility] Address: [address] [place], [place] [id number] Performed By: #### 3 016-3 #### [facility] CLIA [id number] [address] [place] [address] [place] Hemoglobin (Bld) [Mass/Vol] 11.8 g/dL Normal 11.5-15.5 [facility] Comment on above: Order Comment: Speci men Type: BLOOD SPECIMEN Ordering Facility: [facility] Address: [address] [place], [place] [id number] Performed By: #### 3 016-3 #### [facility] CLIA [id number] [address] [place] [address] [place] [facility] IMMATURE GRAN % 0.6 % Normal [facility] Comment on above: Order Comment: Speci men Type: BLOOD SPECIMEN Ordering Facility: [facility] Address: [address] [place], [place] [address] Performed By: #### 3 016-3 #### [facility] CLIA [id number] [address] [place] [address] [place] IMMATURE GRAN ABS 0.06 k/uL Normal <0.10 [facility] Comment on above: Order Comment: Speci men Type: BLOOD SPECIMEN Ordering Facility: [facility] Address: [address] [place], [place] [address] Performed By: #### 3 016-3 #### [facility] CLIA [id number] [address] [place] [address] [place] Lymphocytes (Bld) [#/Vol] 1.23 10*3/uL Normal 1.00-4.00 [facility] Comment on above: Order Comment: Speci men Type: BLOOD SPECIMEN Ordering Facility: [facility] Address: [address] [place] [address] Performed By: #### 3 016-3 #### [facility] CLIA [id number] [address] [place] [address] [place] Lymphocytes/100 WBC (Bld) 12.3 % Normal [facility] Comment on above: Order Comment: Speci men Type: BLOOD SPECIMEN Ordering Facility: [facility] Address: [address] [place] [address] Performed By: #### 3 016-3 #### [facility] CLIA [id number] [address] [place] [address] [place] MCH (RBC) [Entitic mass] 32.1 pg Normal 26.0-34.0 [facility] Comment on above: Order Comment: Speci men Type: BLOOD SPECIMEN Ordering Facility: [facility] Address: [address] [place], [place] [address] Performed By: #### 3 016-3 #### [facility] CLIA [id number] [address] [place] [address] [place] MCHC (RBC) [Mass/Vol] 34.0 g/dL Normal 30.5-36.0 [facility] Comment on above: Order Comment: Speci men Type: BLOOD SPECIMEN Ordering Facility: [facility] Address: [address] [place], [place] [address] Performed By: #### 3 016-3 #### [facility] CLIA [id number] [address] [place] [address] [place] MCV (RBC) [Entitic vol] 94.3 fL Normal 80.0-100.0 [facility] Comment on above: Order Comment: Speci men Type: BLOOD SPECIMEN Ordering Facility: [facility] Address: [address] [place], [place] [address] Performed By: #### 3 016-3 #### [facility] CLIA [id number] [address] [place] [address] [place] Monocytes (Bld) [#/Vol] 0.46 10*3/uL Normal <0.87 [facility] Comment on above: Order Comment: Speci men Type: BLOOD SPECIMEN Ordering Facility: [facility] Address: [address] [place], [place] [address] Performed By: #### 3 016-3 #### [facility] CLIA [id number] [address] [place] [address] [place] Monocytes/100 WBC (Bld) 4.6 % Normal [facility] Comment on above: Order Comment: Speci men Type: BLOOD SPECIMEN Ordering Facility: [facility] Address: [address] [place], [place] [address] Performed By: #### 3 016-3 #### [facility] CLIA [id number] [address] [place] [address] [place] Neutrophils (Bld) [#/Vol] 8.06 10*3/uL High 1.45-7.50 [facility] Comment on above: Order Comment: Speci men Type: BLOOD SPECIMEN Ordering Facility: [facility] Address: [address] [place], [place] [address] Performed By: #### 3 016-3 #### [facility] CLIA [id number] [address] [place] [address] [place] Neutrophils/100 WBC (Bld) 80.6 % Normal [facility] Comment on above: Order Comment: Speci men Type: BLOOD SPECIMEN Ordering Facility: [facility] Address: [address] [place], [place] [address] Performed By: #### 3 016-3 #### [facility] CLIA [id number] [address] [place] [address] [place] Nucleated RBC (Bld) [#/Vol] 10*3/uL Normal <0.01 [facility] Comment on above: Order Comment: Speci men Type: BLOOD SPECIMEN Ordering Facility: [facility] Address: [address] [place] [address] Performed By: #### 3 016-3 #### [facility] CLIA [id number] [address] [place] [address] [place] Nucleated RBC/100 WBC (Bld) [Ratio] 0.0 /100 WBC Normal [facility] Comment on above: Order Comment: Speci men Type: BLOOD SPECIMEN Ordering Facility: [facility] Address: [address] [place] [address] Performed By: #### 3 016-3 #### [facility] CLIA [id number] [address] [place] [address] [place] [place] Platelet mean volume (Bld) [Entitic vol] 9.6 fL Normal 9.0-12.7 [facility] Comment on above: Order Comment: Speci men Type: BLOOD SPECIMEN Ordering Facility: [facility] Address: [address] [place], [place] [address] Performed By: #### 3 016-3 #### [facility] CLIA [id number] [address] [place] [address] [place] Platelets (Bld) [#/Vol] 209 10*3/uL Normal 150-400 [facility] Comment on above: Order Comment: Speci men Type: BLOOD SPECIMEN Ordering Facility: [facility] Address: [address] [place], [place] [address] Performed By: #### 3 016-3 #### [facility] CLIA [id number] [address] [place] [address] [place] RBC (Bld) [#/Vol] 3.68 10*6/uL Low 3.90-5.20 [facility] Comment on above: Order Comment: Speci men Type: BLOOD SPECIMEN Ordering Facility: [facility] Address: [address] [place], [place] [id number] Performed By: #### 3 016-3 #### [facility] CLIA [id number] [address] [place], [place] [address] [place] [address] [place] WBC (Bld) [#/Vol] 10.00 10*3/uL Normal 3.70-11.[address] [facility] Comment on above: Order Comment: Speci men Type: BLOOD SPECIMEN Ordering Facility: [facility] Address: [address] [place] [address] Performed By: #### 3 016-3 #### [facility] CLIA [id number] [address] [place] [address] [place] GEST GLUC SCREEN, 1-HR, 50 G M, NON-FASTINGon 12-05-2021 Glucose [Mass/Vol] 113 mg/dL Normal 74-134 [facility] Comment on above: Order Comment: Speci men Type: BLOOD SPECIMEN Ordering Facility: [facility] Address: [address] [place] [address] Result Comment: [facility] Congress of Obstetricians and Gynecologists (Aubrey/Dorina) guidelines state a gestational diabetes mellitus positive screen is made, in women not previously diagnosed with overt diabetes, when the 1 hr plasma glucose level is equal to or above 140 mg/dL. [facility] and [facility] recommends a 135 mg/dL cutoff. Performed By: #### G LTGST #### [facility] CLIA [id number] [address] [place] [address] [place] Reagin and Treponema pallidu m IgG and IgM [Interp]on 12-05-2021 SYPHILIS INTERPRETATION Cannot exclude recent Treponemal infection if specimen collected within 7-10 days after appearance of suspect lesions or 2-3 weeks after an exposure. Clinical correlation is required. Normal [facility] Comment on above: Order Comment: Speci men Type: BLOOD SPECIMEN Ordering Facility: [facility] Address: [address] [place], [place] [address] Performed By: #### 7 3752-8 #### [facility] CLIA [id number] [address] [place] [address] [place] Reagin+T pallidum IgG+IgM Se rPl-Impon 12-05-2021 Reagin and Treponema pallidum IgG and IgM [Interp] Non-Reactive Normal Nonreactive [facility] Comment on above: Order Comment: Speci men Type: BLOOD SPECIMEN Ordering Facility: [facility] Address: [address] [place] [address] Performed By: #### 7 3752-8 #### [facility] CLIA [id number] [address] [place] [address] [place] TSH SerPl-aCncon 12-05-2021 TSH Qn 1.800 m[IU]/L Normal 0.270-4.200 [facility] Comment on above: Order Comment: Speci men Type: BLOOD SPECIMEN Ordering Facility: [facility] Address: [address] [place] [address] Result Comment: If t he patient is , TSH reference range varies by gestational period: First Trimester (weeks 9-12): 0.180-2.990 mIU/L Second Trimester: 0.110-3.980 mIU/L Third Trimester: 0.480-4.710 mIU/L Serafin Slater et al. A Practical Approach for the Verifications and Determination of Site- and Trimester-Specific Reference Intervals for Thyroid Function tests in . Thyroid, 2019:29:3:412-420. Jorge E, et al. 2017 Guidelines of the [place] Thyroid Association for the Diagnosis and Management of Thyroid Disease during and the . Thyroid, 2017:27:3:315-389. Performed By: #### 3 016-3 #### [facility] CLIA [id number] [address] [place] [address] [place] URINE OB DIP B/Oon 2 Glucose Ql (U) Negative Neg mg/dL [facility] Protein.monoclonal (U) [Mass/Vol] Negative Neg mg/dL [facility] CBC panel Auto (Bld)on 08-22 Erythrocyte distribution width (RBC) [Ratio] 12.0 % Normal 11.5-15.0 [facility] Comment on above: Order Comment: Speci men Type: BLOOD SPECIMEN Ordering Facility: [facility] Address: [address] [place] [address] Performed By: #### 3 016-3 #### [facility] CLIA [id number] [address] [place] [address] [place] Hematocrit (Bld) [Volume fraction] 33.5 % Low 36.0-46.0 [facility] Comment on above: Order Comment: Speci men Type: BLOOD SPECIMEN Ordering Facility: [facility] Address: [address] [place] [address] Performed By: #### 3 016-3 #### [facility] CLIA [id number] [address] [place] [address] [place] Hemoglobin (Bld) [Mass/Vol] 11.5 g/dL Normal 11.5-15.5 [facility] Comment on above: Order Comment: Speci men Type: BLOOD SPECIMEN Ordering Facility: [facility] Address: [address] [place] [address] Performed By: #### 3 016-3 #### [facility] CLIA [id number] [address] [place] [address] [place] MCH (RBC) [Entitic mass] 31.6 pg Normal 26.0-34.0 [facility] Comment on above: Order Comment: Speci men Type: BLOOD SPECIMEN Ordering Facility: [facility] Address: [address] [place] [address] Performed By: #### 3 016-3 #### [facility] CLIA [id number] [address] [place] [address] [place] MCHC (RBC) [Mass/Vol] 34.3 g/dL Normal 30.5-36.0 [facility] Comment on above: Order Comment: Speci men Type: BLOOD SPECIMEN Ordering Facility: [facility] Address: [address] [place] [address] Performed By: #### 3 016-3 #### [facility] CLIA [id number] [address] [place] [address] [place] MCV (RBC) [Entitic vol] 92.0 fL Normal 80.0-100.0 [facility] Comment on above: Order Comment: Speci men Type: BLOOD SPECIMEN Ordering Facility: [facility] Address: [address] [place], [place] [address] Performed By: #### 3 016-3 #### [facility] CLIA [id number] [address] [place] [address] [place] Nucleated RBC (Bld) [#/Vol] 10*3/uL Normal <0.01 [facility] Comment on above: Order Comment: Speci men Type: BLOOD SPECIMEN Ordering Facility: [facility] Address: [address] [place], [place] [address] Performed By: #### 3 016-3 #### [facility] CLIA [id number] [address] [place] [address] [place] Platelet mean volume (Bld) [Entitic vol] 10.1 fL Normal 9.0-12.7 [facility] Comment on above: Order Comment: Speci men Type: BLOOD SPECIMEN Ordering Facility: [facility] Address: [address] [place], [place] [address] Performed By: #### 3 016-3 #### [facility] CLIA [id number] [address] [place] [address] [place] Platelets (Bld) [#/Vol] 253 10*3/uL Normal 150-400 [facility] Comment on above: Order Comment: Speci men Type: BLOOD SPECIMEN Ordering Facility: [facility] Address: [address] [place] [address] Performed By: #### 3 016-3 #### [facility] CLIA [id number] [address] [place] [address] [place] RBC (Bld) [#/Vol] 3.64 10*6/uL Low 3.90-5.20 [facility] Comment on above: Order Comment: Speci men Type: BLOOD SPECIMEN Ordering Facility: [facility] Address: [address] [place] [address] Performed By: #### 3 016-3 #### [facility] CLIA [id number] [address] [place] [address] [place] WBC (Bld) [#/Vol] 10.06 10*3/uL Normal 3.70-11.[address] [facility] Comment on above: Order Comment: Speci men Type: BLOOD SPECIMEN Ordering Facility: [facility] Address: [address] [place] [address] Performed By: #### 3 016-3 #### [facility] CLIA [id number] [address] [place] [address] [place] HBV surface Ab IA Ql (S)on 0 08-22-2021 HBV surface Ag Ql (S) Negative Normal Negative [facility] Comment on above: Order Comment: Speci men Type: BLOOD SPECIMEN Ordering Facility: [facility] Address: [address] [place] [address] Performed By: #### 7 3752-8, 46959-7, 38868-2 #### [facility] CLIA [id number] [address] [place] [address] [place] HCV Ab Ser Qlon 08-22-2021 HCV Ab Ql (S) Negative Normal Negative [facility] Comment on above: Order Comment: Speci men Type: BLOOD SPECIMEN Ordering Facility: [facility] Address: [address] [place] [address] Result Comment: The result suggests no evidence of active infection with Hepatitis C virus. Should recent infection be suspected, repeat testing may be considered 4-6 weeks after this draw. Performed By: #### 1 6128-1 #### [facility] CLIA [id number] [address] [place] [address] [place] HIV 1+2 Ab IA Qlon 2 HIV 1 and 2 Ab IA.rapid Nom Normal [facility] Comment on above: Order Comment: Speci men Type: BLOOD SPECIMEN Ordering Facility: [facility] Address: [address] [place] [address] Result Comment: Test not indicated. Performed By: #### 7 3752-8, 38317-4, 27360-4 #### [facility] CLIA [id number] [address] [place] [address] [place] HIV 1+2 Ab+HIV1 p24 Ag IA Ql Non-Reactive Normal Nonreactive [facility] Comment on above: Order Comment: Speci [facility] Type: BLOOD SPECIMEN Ordering Facility: [facility] Address: [address] [place] [address] Performed By: #### 7 3752-8, 15974-0, 95403-5 #### [facility] CLIA [id number] [address] [place] [address] [place] HIVINT Normal [facility] Comment on above: Order Comment: Speci men Type: BLOOD SPECIMEN Ordering Facility: [facility] Address: [address] [place] [address] Result Comment: No e vidence of HIV-1 or HIV-2 infection. Should recent infection be suspected, repeat testing may be considered 2-3 weeks after this draw. [place] Rev. Code 3701.243(E): This information has been disclosed to you from confidential records protected from disclosure by state law. ???You shall make no further disclosure of this information without the specific, written, and informed release of the individual to whom it pertains or as otherwise permitted by state law. A general authorization for the release of medical or other information is not sufficient for the purpose of the release of HIV test results or diagnoses. Performed By: #### 7 3752-8, 57763-6, 62926-8 #### [facility] CLIA [id number] [address] [place] [address] [place] RUBELLA IGG ABon 08-22-2021 RUBELLA IGG AB, QUAL Positive Normal Positive [facility] Comment on above: Order Comment: Speci men Type: BLOOD SPECIMEN Ordering Facility: [facility] Address: [address] [place] [address] Result Comment: The result suggests recent or past exposure to Rubella virus or history of Rubella vaccination. Positive result may also be seen due to presence of passively-transferred antibodies. Please correlate with patient's history. Performed By: #### R UBIGG #### [facility] CLIA [id number] [address] [place] [address] [place] Reagin and Treponema pallidu m IgG and IgM [Interp]on 08-22-2021 SYPHILIS INTERPRETATION Cannot exclude recent Treponemal infection if specimen collected within 7-10 days after appearance of suspect lesions or 2-3 weeks after an exposure. Clinical correlation is required. Normal [facility] Comment on above: Order Comment: Speci [facility] Type: BLOOD SPECIMEN Ordering Facility: [facility] Address: [address] [place] [address] Performed By: #### 7 3752-8, 05551-6, 25780-3 #### [facility] CLIA [id number] [address] [place] [address] [place] Reagin+T pallidum IgG+IgM Se rPl-Impon 08-22-2021 Reagin and Treponema pallidum IgG and IgM [Interp] Non-Reactive Normal Nonreactive [facility] Comment on above: Order Comment: Speci men Type: BLOOD SPECIMEN Ordering Facility: [facility] Address: [address] [place], [place] [address] Performed By: #### 7 3752-8, 68306-3, 91634-5 #### [facility] CLIA [id number] [address] [place] [address] [place] TYPE + SCREEN PRENATALon ABO O Normal [facility] Comment on above: Order Comment: Speci men Type: BLOOD SPECIMEN Ordering Facility: [facility] Address: [address] [place] [address] Performed By: #### 3 016-3 #### [facility] CLIA [id number] [address] [place] [address] [place] HISTORICAL AB SCR STATUS Negative Normal [facility] Comment on above: Order Comment: Speci men Type: BLOOD SPECIMEN Ordering Facility: [facility] Address: [address] [place] [address] Performed By: #### 3 016-3 #### [facility] CLIA [id number] [address] [place] [address] [place] Rh Nom (Bld) Positive Normal [facility] Comment on above: Order Comment: Speci men Type: BLOOD SPECIMEN Ordering Facility: [facility] Address: [address] [place] [address] Performed By: #### 3 016-3 #### [facility] CLIA [id number] [address] [place] [address] [place] TYPE AND SCREEN EXPIRATION 08/25/2021 23:59 Normal [facility] Comment on above: Order Comment: Speci men Type: BLOOD SPECIMEN Ordering Facility: [facility] Address: [address] [place], [place] [address] Performed By: #### 3 016-3 #### [facility] CLIA [id number] [address] [place] [address] [place] GC/Chlamydia Amplifon 2021 Chlamydia Amplif Negative Normal [facility] Comment on above: Performed By: #### G CCT #### [place] [address] [place] [address] GC Amplification Negative Normal [facility] Comment on above: Performed By: #### G CCT #### [place] [address] [place] [id number] GC/Chlam Amp Source Cervix Normal [facility] Comment on above: Performed By: #### G CCT #### [place] [address] [place] [address] Urine Cultureon 06-29-2021 Bacteria identified Cx Nom (U) Sp. Request/Comment: - Specimen received in preservative Culture Result - 10,000 - <50,000 CFU/ml Normal urogenital yovana Normal [facility] Comment on above: Performed By: #### 3 016-3 #### [facility] CLIA [id number] [address] [place] [address] [place] Vital Signs Date Time Vital Sign Value Performing Clinician Faci lity 11-13-2024 09:41-0400 Body temperature 98.3 [degF] Dr. Adrienne Beltran MD Work Phone: [facility] 11-13-2024 09:41-0400 Diastolic blood pressure 58 mm[Hg] Dr. Adrienne Beltran MD Work Phone: [facility] 11-13-2024 09:41-0400 Heart rate 67 /min Dr. Adrienne Beltran MD Work Phone: [facility] 11-13-2024 09:41-0400 Respiratory rate 15 /min Dr. Adrienne Beltran MD Work Phone: [facility] 11-13-2024 09:41-0400 SaO2% (BldA) [Mass fraction] 98 % Dr. Adrienne Beltran MD Work Phone: [facility] 11-13-2024 09:41-0400 Systolic blood pressure 108 mm[Hg] Dr. Adrienne Beltran MD Work Phone: [facility] 03-20-2022 10:23-0400 Body weight 70.67 kg Rahel Moulton APRN.CNM Work Phone: [facility] 03-20-2022 10:23-0400 Diastolic blood pressure 74 mm[Hg] Rahel Moulton APRN.CNM Work Phone: [facility] 03-20-2022 10:23-0400 Systolic blood pressure 120 mm[Hg] Rahel Moulton APRN.CNM Work Phone: [facility] 02-06-2022 12:45-0400 Body temperature 97.5 [degF] [place] Work Phone: 02-06-2022 12:45-0400 Diastolic blood pressure 49 mm[Hg] [facility] Work Phone: 02-06-2022 12:45-0400 Heart rate 62 /min [facility] Work Phone: 02-06-2022 12:45-0400 Respiratory rate 16 /min [place] Work Phone: 02-06-2022 12:45-0400 SaO2% (BldA) [Mass fraction] 98 % [facility] Work Phone: 02-06-2022 12:45-0400 Systolic blood pressure 92 mm[Hg] [facility] Work Phone: 02-05-2022 01:25-0400 Body height 165.1 cm [facility] Work Phone: 02-05-2022 01:25-0400 Body mass index (BMI) [Ratio] 28.4 kg/m2 [facility] Work Phone: 02-05-2022 01:25-0400 Body weight 77.47 kg [facility] Work Phone: 01-25-2022 10:41-0400 Body weight 77.56 kg Tasha Cr MARKETING COMMUNICATIONS MANAGER.CNM Work Phone: [facility] 01-25-2022 10:41-0400 Diastolic blood pressure 72 mm[Hg] Tasha Cr MARKETING COMMUNICATIONS MANAGER.CNM Work Phone: [facility] 01-25-2022 10:41-0400 Systolic blood pressure 118 mm[Hg] Tasha Cr MARKETING COMMUNICATIONS MANAGER.CNM Work Phone: [facility] 01-18-2022 10:16-0400 Body weight 77.11 kg Tammy Arnold MD Work Phone: [facility] 01-18-2022 10:16-0400 Diastolic blood pressure 66 mm[Hg] Tammy Arnold MD Work Phone: [facility] 01-18-2022 10:16-0400 Systolic blood pressure 110 mm[Hg] Tammy Arnold MD Work Phone: [facility] 01-11-2022 14:00-0400 Body weight 77.11 kg Kim Felder MD Work Phone: [facility] 01-11-2022 14:00-0400 Diastolic blood pressure 66 mm[Hg] Kim Felder MD Work Phone: [facility] 01-11-2022 14:00-0400 Systolic blood pressure 108 mm[Hg] Kim Felder MD Work Phone: [facility] 01-04-2022 14:38-0400 Body weight 77.66 kg Rahel Moulton MARKETING COMMUNICATIONS MANAGER.CNM Work Phone: [facility] 01-04-2022 14:38-0400 Diastolic blood pressure 70 mm[Hg] Rahel Moulton MARKETING COMMUNICATIONS MANAGER.CNM Work Phone: [facility] 01-04-2022 14:38-0400 Systolic blood pressure 120 mm[Hg] Rahel Moulton MARKETING COMMUNICATIONS MANAGER.CNM Work Phone: [facility] 12-20-2021 08:40-0400 Body weight 76.2 kg Kim Felder MD Work Phone: [facility] 12-20-2021 08:40-0400 Diastolic blood pressure 60 mm[Hg] Kim Felder MD Work Phone: [facility] 12-20-2021 08:40-0400 Systolic blood pressure 112 mm[Hg] Kim Felder MD Work Phone: [facility] 12-05-2021 08:08-0400 Body weight 76.66 kg Rahel Moulton MARKETING COMMUNICATIONS MANAGER.CNM Work Phone: [facility] 12-05-2021 08:08-0400 Diastolic blood pressure 60 mm[Hg] Rahel Moulton MARKETING COMMUNICATIONS MANAGER.CNM Work Phone: [facility] 12-05-2021 08:08-0400 Systolic blood pressure 102 mm[Hg] Rahel Moulton MARKETING COMMUNICATIONS MANAGER.CNM Work Phone: [facility] 11-21-2021 15:20-0400 Body weight 75.48 kg Tasha Berrylucie MARKETING COMMUNICATIONS MANAGER.CNM Work Phone: [facility] 11-21-2021 15:20-0400 Diastolic blood pressure 60 mm[Hg] Tasha Plotts MARKETING COMMUNICATIONS MANAGER.CNM Work Phone: [facility] 11-21-2021 15:20-0400 Systolic blood pressure 102 mm[Hg] Tasha Plotts MARKETING COMMUNICATIONS MANAGER.CNM Work Phone: [facility] Encounters Encounter Date Encounter Type Care Provider Facility Start: 01-03-2025 ambulatory ANTONIA KELLY [facility] Start: 11-13-2024 End: 11-13-2024 Patient encounter procedure Lei [facility] Work Phone: Start: 11-13-2024 End: 11-13-[address] Adrienne Beltran MD Work Phone: [facility] Work Phone: Start: 04-07-2022 End: 04-07-2022 ambulatory ADRIENNE BELTRAN Facility:[facility] Start: 03-20-2022 End: 03-20-2022 ambulatory ADRIENNE BELTRAN Facility:[facility] Start: 03-20-2022 End: 03-20-2022 Patient encounter procedure Rahel Moulton APRN.CNM Work Phone: OB/Gynecology Comment on above: care and examination (Primary Dx); control counseling; Acquired hypothyroidism Start: 02-06-2022 ambulatory Rahel Moulton APRN.CNM Work Phone: OB/Gynecology Comment on above: Ob Delivery Note Start: 02-05-2022 End: 02-06-2022 Evaluation and management of inpatient [facility] Start: 02-01-2022 End: 02-01-2022 ambulatory ADRIENNE BELTRAN Facility:[facility] Start: 01-25-2022 End: 01-25-2022 ambulatory ADRIENNE BELTRAN Facility:[facility] Start: 01-25-2022 End: 01-25-2022 Patient encounter procedure Tasha Cr APRN.CNM Work Phone: OB/Gynecology Comment on above: 38 weeks gestation o f (Primary Dx) Start: 01-18-2022 End: 01-18-2022 ambulatory ADRIENNE BELTRAN Facility:[facility] Start: 01-18-2022 End: 01-18-2022 Patient encounter procedure Tammy Arnold MD Work Phone: OB/Gynecology Comment on above: Encounter for superv ision of other normal in third trimester (Primary Dx); 37 weeks gestation of Start: 01-11-2022 End: 01-11-2022 ambulatory ADRIENNE BELTRAN Facility:[facility] Start: 01-11-2022 End: 01-11-2022 Patient encounter procedure Kim Felder MD Work Phone: OB/Gynecology Comment on above: 36 weeks gestation o f (Primary Dx); Supervision of high risk in third trimester Start: 01-04-2022 End: 01-04-2022 ambulatory ADRIENNE BELTRAN Facility:[facility] Start: 01-04-2022 End: 01-04-2022 Patient encounter procedure Rahel Moulton APRN.CNM Work Phone: OB/Gynecology Comment on above: 35 weeks gestation o f (Primary Dx); Supervision of high risk due to social problems, third trimester Start: 12-20-2021 End: 12-20-2021 ambulatory ADRIENNE BELTRAN Facility:[facility] Start: 12-20-2021 End: 12-20-2021 Patient encounter procedure Kim Felder MD Work Phone: OB/Gynecology Comment on above: 32 weeks gestation o f (Primary Dx); Supervision of high risk due to social problems, third trimester Start: 12-05-2021 End: 12-05-2021 ambulatory ADRIENNE BELTRAN Facility:[facility] Start: 12-05-2021 End: 12-05-2021 Patient encounter procedure Rahel Moulton APRN.CNTony Work Phone: OB/Gynecology Comment on above: 30 weeks gestation o f (Primary Dx) Start: 11-21-2021 End: 11-21-2021 ambulatory TASHA CR Facility:[facility] Start: 11-21-2021 End: 11-21-2021 Patient encounter procedure Tasha Cr APRN.CNM Work Phone: OB/Gynecology Comment on above: 28 weeks gestation o f (Primary Dx); Supervision of high risk in second trimester Start: 10-17-2021 End: 10-17-2021 ambulatory RAHEL MOULTON Facility:[facility] Start: 09-16-2021 End: 09-16-2021 ambulatory CARLOS VENEGAS Facility:[facility] Start: 08-22-2021 End: 08-22-2021 ambulatory KIM FELDER Facility:[facility] Start: 07-25-2021 End: 07-25-2021 ambulatory ADRIENNE BELTRAN Facility:[facility] Start: 06-29-2021 End: 06-29-2021 ambulatory ADRIENNE BELTRAN [facility] Start: 06-29-2021 ambulatory ADRIENNE BELTRAN Facility:[facility] Start: 06-20-2021 End: 06-20-2021 ambulatory ADRIENNE FARMER RUBY Facility:[facility] Procedures Date Procedure Procedure Detail Performing Clinician Start: 01-25-2022 URINE OB DIP B/O Lee Cr MARKETING COMMUNICATIONS MANAGER.CNM Work Phone: Start: 01-18-2022 URINE OB DIP B/O Tammy Arnold MD Work Phone: Start: 01-11-2022 URINE OB DIP B/O Akira Felder MD Work Phone: Start: 01-04-2022 URINE OB DIP B/O Aracelis Moulton MARKETING COMMUNICATIONS MANAGER.CNM Work Phone: Start: 12-20-2021 URINE OB DIP B/O Akira Felder MD Work Phone: Start: 11-21-2021 URINE OB DIP B/O Lee Cr MARKETING COMMUNICATIONS MANAGER.CNM Work Phone: Start: 08-22-2021 Antibody screen KIM FELDER Comment on above: Order Comment: Speci men Type: BLOOD SPECIMEN Ordering Facility: [facility] Address: [address] [place] [address] Performed By: #### 3 [id number] #### [facility] CLIA [id number] [address] [place] [address] OF [facility] Viral antigen assay Plan of Treatment Date Care Activity Detail Author Start: 05-12-2025 PAP TESTING PAP TESTING [facility] Start: 12-14-2024 Urine microalbumin profile DTAP,TDAP,TD (8 - Td or Tdap) [facility] Start: 03-20-2022 End: 05-20-2022 Thyrotropin [Units/volume] in Serum or Plasma TSH BLD Lab Routine Acquired hypothyroidism Expected: 03/20/2022, Expires: 05/20/2022 [facility] Work Phone: Comment on above: Expected: 03/20/2022 , Expires: 05/20/2022 Start: 03-20-2022 End: 05-20-2022 Thyroxine (T4) free [Mass/volume] in Serum or Plasma T4 FREE/FREE THYROX Lab Routine Acquired hypothyroidism Expected: 03/20/2022, Expires: 05/20/2022 [facility] Work Phone: Comment on above: Expected: 03/20/2022 , Expires: 05/20/2022 Start: 02-16-2022 Influenza vaccination [facility] Start: 02-06-2022 Patient discharge [facility] Work Phone: Start: 02-05-2022 Administration of medication [facility] Work Phone: Start: 02-05-2022 Application of ice collar, cap or bag [facility] Work Phone: Start: 02-05-2022 Catheterization of vein [facility] Work Phone: Start: 02-05-2022 Introduction of urin cipriano catheter [facility] Work Phone: Start: 02-05-2022 Measuring intake and output [facility] Work Phone: Start: 02-05-2022 Notification of physician [facility] Work Phone: Start: 02-05-2022 Procedure discontinued [facility] Work Phone: Start: 02-05-2022 Provision of activit y privileges [facility] Work Phone: Start: 02-05-2022 Vital signs measurements [facility] Work Phone: Start: 02-05-2022 [facility] Work Phone: Start: 02-05-2022 Admission procedure [facility] Work Phone: Start: 06-18-2021 DEPRESSION ASSESSMENT DEPRESSION ASS ESSMENT [facility] Start: 2020 HPV TESTING HPV TESTING [facility] Start: 2008 ANNUAL PCP TEAM CONTOUR GRINDER JAYCE DISEASE VISIT ANNUAL PCP TEAM CHRONIC DISEASE VISIT [facility] Start: 2002 Adult depression screening assessment DEPRESSION SCREENING [facility] Start: 1995 COVID-19 VACCINE (#1) [facility] Start: 01-07-1991 COVID-19 VACCINE (#1) COVID-19 VACCI NE (#1) [facility] Work Phone: ROUTINE, GR OUP B STREP PCR ROUTINE, GROUP B STREP PCR Microbiology Routine 36 weeks gestation of Supervision of high risk in third trimester 01/11/2022 2:26 PM EDT [facility] Work Phone: URINE OB DIP B/O URINE OB DIP B/ O Lab Routine 30 weeks gestation of Ordered: 12/05/2021 [facility] Work Phone: Comment on above: Ordered: 12/05/2021 [facility] Immunizations Immunization Date Immunization Notes Care Provider Joselito henry 12-14-2014 tetanus toxoid, redu arturo diphtheria toxoid, and acellular pertussis vaccine, adsorbed Tasha Plotts MARKETING COMMUNICATIONS MANAGER.CNM Work Phone: [facility] 09-06-2012 tetanus toxoid, redu arturo diphtheria toxoid, and acellular pertussis vaccine, adsorbed Tasha Plotts MARKETING COMMUNICATIONS MANAGER.CNM Work Phone: [facility] 07-12-2006 hepatitis B vaccine, pediatric or pediatric/adolescent dosage Tasha Plotts MARKETING COMMUNICATIONS MANAGER.CNM Work Phone: [facility] 12-20-2005 hepatitis B vaccine, pediatric or pediatric/adolescent dosage Tasha Plotts MARKETING COMMUNICATIONS MANAGER.CNM Work Phone: [facility] 11-16-2005 hepatitis B vaccine, pediatric or pediatric/adolescent dosage Tasha Plotts MARKETING COMMUNICATIONS MANAGER.CNM Work Phone: [facility] 02-10-2004 measles, mumps and rubella virus vaccine Tasha Plotts MARKETING COMMUNICATIONS MANAGER.CNM Work Phone: [facility] 02-10-2004 tetanus and diphther ia toxoids, adsorbed, preservative free, for adult use (2 Lf of tetanus toxoid and 2 Lf of diphtheria toxoid) Tasha Plotts MARKETING COMMUNICATIONS MANAGER.CNM Work Phone: [facility] 01-28-1996 diphtheria, tetanus toxoids and acellular pertussis vaccine Tasha Plotts MARKETING COMMUNICATIONS MANAGER.CNM Work Phone: [facility] 01-28-1996 measles, mumps and rubella virus vaccine Tasha Plotts MARKETING COMMUNICATIONS MANAGER.CNM Work Phone: [facility] 01-28-1996 trivalent poliovirus vaccine, live, oral Tasha Plotts MARKETING COMMUNICATIONS MANAGER.CNM Work Phone: [facility] 03-11-1992 diphtheria and tetan us toxoids, adsorbed for pediatric use Tasha Plotts MARKETING COMMUNICATIONS MANAGER.CNM Work Phone: [facility] 03-11-1992 haemophilus influenz ae type b vaccine, HbOC conjugate Tasha Plotts MARKETING COMMUNICATIONS MANAGER.CNM Work Phone: [facility] 03-11-1992 measles, mumps and rubella virus vaccine Tasha Plotts MARKETING COMMUNICATIONS MANAGER.CNM Work Phone: [facility] 03-11-1992 trivalent poliovirus vaccine, live, oral Tasha Plotts MARKETING COMMUNICATIONS MANAGER.CNM Work Phone: [facility] 02-06-1991 diphtheria and tetan us toxoids, adsorbed for pediatric use Tasha Plotts MARKETING COMMUNICATIONS MANAGER.CNM Work Phone: [facility] 02-06-1991 haemophilus influenz ae type b vaccine, HbOC conjugate Tasha Plotts MARKETING COMMUNICATIONS MANAGER.CNM Work Phone: [facility] 1990 diphtheria and tetan us toxoids, adsorbed for pediatric use Tasha Plotts MARKETING COMMUNICATIONS MANAGER.CNM Work Phone: [facility] 1990 haemophilus influenz ae type b vaccine, HbOC conjugate Tasha Plotts MARKETING COMMUNICATIONS MANAGER.CNM Work Phone: [facility] 1990 trivalent poliovirus vaccine, live, oral Tasha Plotts MARKETING COMMUNICATIONS MANAGER.CNM Work Phone: [facility] 1990 diphtheria and tetan us toxoids, adsorbed for pediatric use Tasha Berrylucie MARKETING COMMUNICATIONS MANAGER.CNM Work Phone: [facility] 1990 haemophilus influenz ae type b vaccine, HbOC conjugate Tasha Cr MARKETING COMMUNICATIONS MANAGER.CNM Work Phone: [facility] 1990 trivalent poliovirus vaccine, live, oral Tasha Berrylucie MARKETING COMMUNICATIONS MANAGER.CNM Work Phone: [facility] Payers Date Payer Category Payer Self-pay [id number] Self-pay [id number] 2015 Unknown [id number] 2012 Unknown [id number] 2010 Unknown [id number] Medicaid [id number] Unknown [id number] Unknown [id number] Social History Date Type Detail Facility Start: 02-01-2022 End: 07-05-2023 Tobacco smoking status NHIS Never smoked tobacco [facility]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 for chromosomal abnormalities and certain defects during a . The sequential screen combines ultrasound and blood tests to determine the risk of chromosomal abnormalities, including Down's Syndrome (Trisomy 21) and Trisomy 18, as well as open neural tube defects including spina bifida. Ultrasound examination is performed between 11 weeks and 13 weeks gestational age. Blood tests are drawn after the ultrasound and again later in the between 15 and 21 weeks gestational age. Please let your physician know if you are interested in this testing. It will require an appointment with our fingerprint technician. This is not an ultrasound performed by a physician in our office during a routine visit. SIGNS AND SYMPTOMS OF LABOR 1. Contractions every 10 minutes or more often 2. Clear, pink, or brownish fluid (water) leaking from vagina 3. Feeling that baby is pushing down, pressure 4. Low, dull backache 5. Cramps that feel like a period 6. Cramps with or without diarrhea If you notice any of the above symptoms, contact our office at [phone] and ask to speak with a nurse. After hours, you can call doctors registry at [phone] OR call [facility] at [phone] and ask to have the doctor medical donation professional paged. If you consider this an emergency, dial [phone]- or go to your nearest emergency department. NEED HELP? Are you dealing with a violent or abusive relationship? Are you a victim of rape or sexual assult? Call [facility] ([place]) 24 hour Crisis Hotline: 145.514.7004 or 415-649-9119. MANUAL Your Guide to a Healthy manual is now on-line. Visit [email or web address] to download your free copy documented in this encounter [facility] 07-25-2021 History of Past i llness Narrative Problem Noted Date Resolved Date Supervision of other high risk pregnancies, firs t trimester 07/25/2021 03/20/2022 Positive GBS test 08/13/2017 07/25/2021 GBS carrier 08/20/2014 04/12/2015 Overview: August 20, 2014 GBS + in urine, not UTI, no antibiotics at this time. Kim Felder MD Encounter for supervision of other normal , third trimester 07/20/2014 07/25/2021 Supervision of other normal 04/16/2012 11/18/2012 Overview: Gender surprise with uncertain dates 03/30/2012 1 Overview: 03/30/2012 Patient has a history of irregular menses every 28-[address] days. Ultrasound ordered by Dr. Arnold . documented as of this encounter (statuses as of 03/20/2022) [facility]01-12-2022 NoteHNO ID: [id number] Author: Kim Felder MD Service: ? Author Type: Physician Type: Progress Notes Filed: 06/29/2021 10:59 AM Note Text: INITIAL OB ASSESSMENT OB Provider: Kim Felder MD HPI: Rl Vera is a 30 year old female here to establish Obstetrical Care. Patient's last menstrual period was 04/29/2020. from OB Dating Form. Cycle length: 24-25 days Complaints: tired a little, doing well overall was planned. OB History T3 L3 SAB0 IAB0 Ectopic0 Multiple0 Live Births3 Prior : never History of 4th degree laceration: No Patient's Risk Screening for delivery: History of abnormal pap: No Prior treatment for cervical dysplasia: none. History of STDs: None Tobacco use: No Caffeine use: No Drug use: No Alcohol use: No Multivitamin with Folic acid: Yes Occupation: Homemaker Jain or heritage: No Would refuse blood transfusion if medically necessary: No No weight on file for this encounter. Patient BMI over 30? No Marital Status: Partner: Name: William Age: 30 Occupation: hay farmer Gender: male History of STDs: None PAST MEDICAL HISTORY Diagnosis Date - FRACTURE FINGER, GO CART ACCIDENT - Hypothyroid PAST SURGICAL HISTORY Procedure Laterality Date - REPAIR FINGER/HAND TENDON Two fingers on right hand repaired after injury Current Outpatient Medications on File Prior to Visit Medication Sig - MULTIVITAMIN ORAL Take by mouth. - levothyroxine (SYNTHROID) 50 mcg tablet Take 50 mcg by mouth daily before breakfast. No current facility-administered medications on file prior to visit. Review of Systems: GENERAL: Negative for: Fever or Chills HEENT: Negative for: Headache, Impaired Vision, Ringing in Ears, Nosebleeds NECK: Negative for: Swelling, Pain, Stiffness RESPIRATORY: Negative for: Cough, Shortness of breath, Wheezing GASTROINTESTINAL: Negative for: Heartburn, Constipation, Diarrhea, Blood in stool, Vomiting MUSCULOSKELETAL: Negative for: Muscle or joint pain, stiffness, Joint swelling NEUROLOGIC/PSYCHIATRIC: Negative for: Weakness, Paralysis, Numbness, Tingling, Tremor, Anxiety, Depression, Memory loss SKIN: Negative for: Rash, Itching GENITOURINARY: Negative for: vaginal itching, vaginal discharge, hematuria or dysuria PHYSICAL EXAM: LMP 04/29/2020 GENERAL: pleasant female in no apparent distress DERMATOLOGY: Normal, without lesions, non-icteric and non-hirsute NECK: Supple, full range of motion, no adenopathy and thyroid normal CHEST: Normal inspiratory effort BREAST: soft, non-tender, symmetric, no dominant mass, normal nipple-areolar complex, no lymphadenopathy and no nipple discharge ABDOMEN: soft, non-tender and no masses NEURO: alert and oriented x3,exam grossly non-focal PELVIS: External genitalia normal without lesions. Perineal body intact. No vaginal or cervical lesions. Cervix closed. Uterus 8 w week size. No adnexal masses or tenderness. Clinical Pelvimetry: Pelvimetry clinically assessed as adequate Limited OB ultrasound exam: single intrauterine , positive cardiac activity and crown-rump length 8w OB Risk Screening: Completed, no positive findings documented. ASSESSMENT: 30 year old at 8w wks gestational age PLAN: 1) Patient oriented to practice. Discussed nutrition, folic acid supplementation, dietary guidelines, exercise, smoking, alcohol, caffeine, and drug use. Discussed routine OB labs including STD/HIV. Discussed aneuploidy screening options including serum screening and nuchal translucency. Patient declines all aneuploidy screening. CF carrier screening discussed and declined. Check TSH Follow up in 4 weeks or sooner prn. Kim Felder, [facility]02-26-2018 History of Past illness Narrative* Problem Noted Date Resolved Date Positive GBS test 08/13/2017 07/25/2021 GBS carrier 08/20/2014 04/12/2015 Overview: August 20, 2014 GBS + in urine, not UTI, no antibiotics at this time. Kim Felder MD Encounter for supervision of other normal , third trimester 07/20/2014 07/25/2021 Supervision of other normal 04/16/2012 11/18/2012 Overview: Gender surprise with uncertain dates 03/30/2012 1 Overview: 03/30/2012 Patient has a history of irregular menses every 28-[address] Ul[address] ordered by Dr. Arnodl . documented as of this encounter (statuses as of 11/21/2021) [facility] History of Past illness Narrative* Problem Noted Date Resolved Date Positive GBS test 08/13/2017 07/25/2021 GBS carrier 08/20/2014 04/12/2015 Overview: August 20, 2014 GBS + in urine, not UTI, no antibiotics at this time. Kim Felder MD Encounter for supervision of other normal , third trimester 07/20/2014 07/25/2021 Supervision of other normal 04/16/2012 11/18/2012 Overview: Gender surprise with uncertain dates 03/30/2012 1 Overview: 03/30/2012 Patient has a history of irregular menses every 28-40 days. Ultrasound ordered by Dr. Arnold . documented as of this encounter (statuses as of 12/05/2021) [facility] History of Past illness Narrative* Problem Noted Date Resolved Date Positive GBS test 08/13/2017 07/25/2021 GBS carrier 08/20/2014 04/12/2015 Overview: August 20, 2014 GBS + in urine, not UTI, no antibiotics at this time. Kim Felder MD Encounter for supervision of other normal , third trimester 07/20/2014 07/25/2021 Supervision of other normal 04/16/2012 11/18/2012 Overview: Gender surprise with uncertain dates 03/30/2012 1 Overview: 03/30/2012 Patient has a history of irregular menses every 28-40 days. Ultrasound ordered by Dr. Arnold . documented as of this encounter (statuses as of 12/20/2021) [facility] History of Past illness Narrative* Problem Noted Date Resolved Date Positive GBS test 08/13/2017 07/25/2021 GBS carrier 08/20/2014 04/12/2015 Overview: August 20, 2014 GBS + in urine, not UTI, no antibiotics at this time. Kim Felder MD Encounter for supervision of other normal , third trimester 07/20/2014 07/25/2021 Supervision of other normal 04/16/2012 11/18/2012 Overview: Gender surprise with uncertain dates 03/30/2012 1 Overview: 03/30/2012 Patient has a history of irregular menses every 28-40 days. Ultrasound ordered by Dr. Arnold . documented as of this encounter (statuses as of 01/04/2022) [facility] History of Past illness Narrative* Problem Noted Date Resolved Date Positive GBS test 08/13/2017 07/25/2021 GBS carrier 08/20/2014 04/12/2015 Overview: August 20, 2014 GBS + in urine, not UTI, no antibiotics at this time. Kim Felder MD Encounter for supervision of other normal , third trimester 07/20/2014 07/25/2021 Supervision of other normal 04/16/2012 11/18/2012 Overview: Gender surprise with uncertain dates 03/30/2012 1 Overview: 03/30/2012 Patient has a history of irregular menses every 28-40 days. Ultrasound ordered by Dr. Arnold . documented as of this encounter (statuses as of 01/11/2022) [facility] History of Past illness Narrative* Problem Noted Date Resolved Date Positive GBS test 08/13/2017 07/25/2021 GBS carrier 08/20/2014 04/12/2015 Overview: August 20, 2014 GBS + in urine, not UTI, no antibiotics at this time. Kim Felder MD Encounter for supervision of other normal , third trimester 07/20/2014 07/25/2021 Supervision of other normal 04/16/2012 11/18/2012 Overview: Gender surprise with uncertain dates 03/30/2012 1 Overview: 03/30/2012 Patient has a history of irregular menses every 28-40 days. Ultrasound ordered by Dr. Arnold . documented as of this encounter (statuses as of 01/18/2022) [facility] History of Past illness Narrative* Problem Noted Date Resolved Date Positive GBS test 08/13/2017 07/25/2021 GBS carrier 08/20/2014 04/12/2015 Overview: August 20, 2014 GBS + in urine, not UTI, no antibiotics at this time. Kim Felder MD Encounter for supervision of other normal , third trimester 07/20/2014 07/25/2021 Supervision of other normal 04/16/2012 11/18/2012 Overview: Gender surprise with uncertain dates 03/30/2012 1 Overview: 03/30/2012 Patient has a history of irregular menses every 28-[address] days. Ultrasound ordered by Dr. Arnold . documented as of this encounter (statuses as of 01/25/2022) [facility] History of Past illness Narrative* Problem Noted Date Resolved Date Positive GBS test 08/13/2017 07/25/2021 GBS carrier 08/20/2014 04/12/2015 Overview: August 20, 2014 GBS + in urine, not UTI, no antibiotics at this time. Kim Felder MD Encounter for supervision of other normal , third trimester 07/20/2014 07/25/2021 Supervision of other normal 04/16/2012 11/18/2012 Overview: Gender surprise with uncertain dates 03/30/2012 1 Overview: 03/30/2012 Patient has a history of irregular menses every 28-40 days. Ultrasound ordered by Dr. Arnold . documented as of this encounter (statuses as of 02/06/2022) [facility] Diagnosis 28 weeks gestation of - Primary state, incidental Supervision of high risk in second trimester Unspecified high-risk [facility] Diagnosis 30 weeks gestation of - Primary state, incidental [facility]* Diagnosis 32 weeks gestation of - Primary state, incidental Supervision of high risk due to social problems, third trimester documented in this encounter [facility] note* Diagnosis 35 weeks gestation of - Primary state, incidental Supervision of high risk due to social problems, third trimester documented in this encounter [facility] note* Diagnosis 36 weeks gestation of - Primary state, incidental Supervision of high risk in third trimester Unspecified high-risk documented in this encounter [facility] note* Diagnosis Encounter for supervision of other normal in third trimester- Primary 37 weeks gestation of state, incidental documented in this encounter [facility] note* Diagnosis 38 weeks gestation of - Primary state, incidental documented in this encounter [facility] note* Diagnosis Onset Date Resolution Status Care and examination of lactating mother acute Positive GBS test acute Spontaneous onset of labor a cute Term acute Thin meconium stained amniotic fluid acute Vaginal delivery acute Hypothyroid chronic [facility] Work Phone: Evaluation note* Diagnosis care and examination- Primary Routine follow-up control counseling General counseling for initiation of other contraceptive measures Acquired hypothyroidism Unspecified hypothyroidism documented in this encounter [facility] noteNo assessment information availableBlPark[facility] Work Phone: Reason for referral (narrative)No reason for referral information availableFilley Medical Services Work Phone: Chief Complaint and Reason for Visit Chief Complaint VAGINAL DELIVERY Reason for Visit Care and examination of lactating mother Positive GBS test Spontaneous onset of labor Term Thin meconium stained amniotic fluid Vaginal delivery Hypothyroid Chief Complaint Admit Date CONCERN FOR POISON JOSE November 13, 2024 9: 30am Advance Directives No Advanced Directives Records Found Advance Directive Response Recorded Date/ Time Living Will Yes February 05 6:51am Power of Utilization Management Nurse Yes February 05 022 6:51am Name of Medical Power of Utilization Management Nurse Alexys Vera February 05, 2022 6:51am Summary Purpose Family History No Family History Records FoundNo Family History Records Found Additional Source Comments Source Comments (unrecognize d section and content) In the event this informatio n is protected by the Federal Confidentiality of Alcohol and Drug Abuse Patient Records regulations: The Federal rules restrict any use of the information to criminally investigate or prosecute any alcohol or drug abuse patient.[facility] the event this information is protected by the Federal Confidentiality of Alcohol and Drug Abuse Patient Records regulations: The Federal rules restrict any use of the information to criminally investigate or prosecute any alcohol or drug abuse patient.[facility] the event this information is protected by the Federal Confidentiality of Alcohol and Drug Abuse Patient Records regulations: The Federal rules restrict any use of the information to criminally investigate or prosecute any alcohol or drug abuse patient.[facility] the event this information is protected by the Federal Confidentiality of Alcohol and Drug Abuse Patient Records regulations: The Federal rules restrict any use of the information to criminally investigate or prosecute any alcohol or drug abuse patient.[facility]In the event this information is protected by the Federal Confidentiality of Alcohol and Drug Abuse Patient Records regulations: The Federal rules restrict any use of the information to criminally investigate or prosecute any alcohol or drug abuse patient.[facility] the event this information is protected by the Federal Confidentiality of Alcohol and Drug Abuse Patient Records regulations: The Federal rules restrict any use of the information to criminally investigate or prosecute any alcohol or drug abuse patient.[facility] the event this information is protected by the Federal Confidentiality of Alcohol and Drug Abuse Patient Records regulations: The Federal rules restrict any use of the information to criminally investigate or prosecute any alcohol or drug abuse patient.[facility]In the event this information is protected by the Federal Confidentiality of Alcohol and Drug Abuse Patient Records regulations: The Federal rules restrict any use of the information to criminally investigate or prosecute any alcohol or drug abuse patient.[facility]In the event this information is protected by the Federal Confidentiality of Alcohol and Drug Abuse Patient Records regulations: The Federal rules restrict any use of the information to criminally investigate or prosecute any alcohol or drug abuse patient.[facility] Reason for Visit (unrecogniz ed section and content) Reason Onset Date Comments Care 01/25/2022 Specialty Diagnoses / Procedures Referred By Contac t Referred To Contact PROJECT CONTROLS SCHEDULER Diagnoses OB Procedures OB Rahel Moulton APRN.CNM [address] [place] [address] [employer] [address] [place] [address] Referral ID Status Reason Start Date Expiration Date V isits Requested Visits Authorized [id number] Closed Financial Clearance Required - Self Pay Patient Cleared - True Self-Pay required payment collected 12/20/2021 03/20/2022 3 3 Reason Onset Date Comments Care 01/18/2022 Referral ID Status Reason Start Date Expiration Date Visits Requested Visits Authorized [id number] Authorized Financial Clearance Required - Self Pay Patient Cleared - True Self-Pay required payment collected 12/20/2021 03/20/2022 3 3 Reason Onset Date Comments Care 12/05/2021 Specialty Diagnoses / Procedures Referred By Contac t Referred To Contact PROJECT CONTROLS SCHEDULER Diagnoses OB VISITS (3) Procedures OFFICE VISIT Self [employer] [address] [place] [address] Referral ID Status Reason Start Date Expiration Date V isits Requested Visits Authorized [id number] Closed Financial Clearance Required - Self Pay Patient Cleared - True Self-Pay required payment collected 10/06/2021 01/05/2022 3 3 Reason Onset Date Comments Care 11/21/2021 Referral ID Status Reason Start Date Expiration Date Visits Requested Visits Authorized [id number] Authorized Financial Clearance Required - Self Pay Patient Cleared - True Self-Pay required payment collected 10/06/2021 01/05/2022 3 3 Reason Onset Date Comments Care 12/20/2021 Specialty Diagnoses / Procedures Referred By Contac t Referred To Contact PROJECT CONTROLS SCHEDULER Diagnoses OB VISITS (3) Procedures OFFICE VISIT Richard, [employer] [address] [place] [address] Reason Onset Date Comments Care 01/04/2022 Reason Onset Date Comments Care 01/11/2022 Reason Comments Ob Delivery Note Reason Comments Routine Specialty Diagnoses / Procedures Referred By Contac t Referred To Contact PROJECT CONTROLS SCHEDULER Diagnoses Post Procedures Post Visit Kim Felder MD [address] [place] [address] [employer] [address] [place] [address] Referral ID Status Reason Start Date Expiration Date V isits Requested Visits Authorized [id number] Closed Financial Clearance Required - Self Pay Patient Cleared - True Self-Pay required payment collected 03/16/2022 06/14/2022 1 1 Care Teams (unrecognized sec tion and content) Shellfish Manager Relationship Specialty Start Date End Date Adrienne Beltran MD [address] [place], [place] [id number] PCP - General Family Practice 12/27/10 Shellfish Manager Relationship Specialty Start Date End Date Adrienne Beltran MD [address] [place], [place] [id number] PCP - General Family Practice 12/27/10 Shellfish Manager Relationship Specialty Start Date End Date Adrienne Beltran MD [facility] [address] [place], [place] [address] PCP - General Family Practice 12/27/10 Shellfish Manager Relationship Specialty Start Date End Date Adrienne Beltran MD [address] [place] [address] PCP - General Family Practice 12/27/10 Shellfish Manager Relationship Specialty Start Date End Date Adrienne Beltran MD [address] [place] [address] PCP - General Family Practice 12/27/10 Shellfish Manager Relationship Specialty Start Date End Date Adrienne Beltran MD [address] [place] [address] PCP - General Family Medicine 12/27/10 Team Status: Active Member Role Status Dates Dr. Adrienne Beltran MD Family Provider Active Dr. Adrienne Beltran MD Primary Care Provider Active Team Status: Inactive Member Role Status Dates Dr. Adrienne Beltran MD Primary Care Provider Active Start: November 13, 2024 End: November 13, 2024 Dr. Adrienne Beltran MD Referring Provider Active Start: November 13, 2024 End: November 13, 2024 Lei JEFFERSON PA Attending Provider Active Sta rt: November 13, 2024 End: November 13, 2024 INFORMATION SOURCE (unrecogn ized section and content) DATE CREATED AUTHOR 04/11/2022 [facility] DATE CREATED AUTHOR AUTHOR'S ORGANIZ ATGWEN 01/03/2025 [facility] Goals (unrecognized section and content) Goals may be documented in a n alternate section FOR RECORDS PERTAINING TO PATIENTS WHO ARE OR HAVE BEEN ENROLLED IN A CHEMICAL DEPENDENCY/SUBSTANCEABUSE PROGRAM, SOME INFORMATION MAY BE OMITTED. This clinical summary was aggregated from multiple sources. Caution should be exercised in using it in the provision of clinical care. This summary normalizes information from multiple sources, and as a consequence, information in this document may materially change the coding, format and clinical context of patient data. In addition, data may be omitted in some cases. CLINICAL DECISIONS SHOULD BE BASED ON THE PRIMARY CLINICAL RECORDS. [facility]. provides no warranty or guarantee of the accuracy or completeness of information in this document.
--- NOTE | 2025-01-03 11:40 | US_ITS ---
PROCEDURE: THYROID 01/03/2025 REASON FOR EXAM: SCREENING FOR THYROID DISORDER TECHNIQUE: THYROID COMPARISON: None FINDINGS: Right thyroid lobe size: 4.7 x 1.9 x 1.7 cm Left thyroid lobe size: 5.5 x 1.8 x 1.4 cm Isthmus: 4 mm Background parenchymal echotexture is heterogeneous.. Nodules: No discrete nodules are seen. No discrete nodules are seen. 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 Clinical correlation to lab work is recommended. RECOMMENDATION: Based on most suspicious nodule. Nodule size = largest diameter Only evaluate nodule if =>5 mm. Growth > 20% in 2 dimensions = worsening. Follow up to 4 nodules. Recommend biopsy for no more than 2 nodules. Reading Location: [id number]
== END | disposition home or self-care (01) ==
PROVIDERS: PCP Family Medicine
DX: Z13.29 Encounter for screening for other suspected endocrine disorder (principal)
CPT/HCPCS: 76536